=== PATIENT | male | born 1965 | race Caucasian/White ===

== ENCOUNTER 2020-12-13 17:26 | Outpatient (REF) | payer BC, SELFPAY ==
[2020-12-13 17:59] LABS: MANUAL DIFF FLAG NO
[2020-12-13 18:06] LABS: Basophils Percent Auto 0.3 % (0-2); Eosinophils Absolute Auto 0.1 X10*3/uL (0.0-0.4); Eosinophils Percent Auto 0.7 % (0-4); Hematocrit 45.6 % (42-52); Imm Gran Abs Auto 0.02 X10*3/uL (0.00-0.03); Imm Gran Pct Auto 0.3 % (0.0-0.4); Lymphocytes Absolute Auto 2.1 X10*3/uL (1.2-4.9); Lymphocytes Percent Auto 30.3 % (20-40); Mean Corpuscular HGB Conc 32.9 g/dl (31.0-36.0); Mean Corpuscular Hemoglobin 28.2 pg (27.0-33.0); Mean Corpuscular Volume 85.7 fL (80-98); Mean Platelet Volume 9.5 fL (9.4-12.4); Monocytes Absolute Auto 0.5 X10*3/uL (0.1-1.2); Monocytes Percent Auto 7.6 % (2-11); Neutrophils Absolute Auto 4.2 X10*3/uL (2.0-8.3); Neutrophils Percent Auto 60.8 % (45-73); Platelet Count 272 X10*3/uL (160-400); Red Blood Count 5.32 X10*6/uL (4.60-5.80); Red Cell Distribution Width 12.5 % (11.0-16.0)
[2020-12-13 18:10] LABS: Glucose Urine UA NEG (NEG); Leukocyte Esterase Urine NEG (NEG); Nitrite Urine NEG (NEG); Specific Gravity - Urine 1.025 (1.005-1.025); Urine Blood NEG (NEG); Urine Ketones NEG (NEG); Urine Protein NEG (NEG-TRACE)
[2020-12-13 18:14] LABS: Appearance Urine CLEAR; Color Urine YELLOW
[2020-12-13 18:21] LABS: Alanine Aminotransferase 29 U/L (0-40); Albumin Level 4.3 g/dL (3.5-5.0); Alkaline Phosphatase 94 U/L (39-117); Anion Gap 14 (12-20); Aspartate Amino Transferase 23 U/L (5-37); Bilirubin Total 0.5 mg/dL (0.0-1.0); Blood Urea Nitrogen 11 mg/dL (9-16); Calcium 9.4 mg/dL (8.4-10.2); Carbon Dioxide 26 mmol/L (22-29); Chloride 103 mmol/L (96-108); Cholesterol 206 mg/dL; Estimated Glomerular Filt Rate > 60; Glucose Random 91 mg/dL (60-115); HDL Cholesterol 36 mg/dL; LDL Cholesterol Calculated 131 mg/dl; Potassium 4.1 mmol/L (3.3-5.1); Sodium 139 mmol/L (135-145); Total Protein 7.4 g/dL (6.5-8.0); Triglycerides 197 mg/dL
[2020-12-13 18:31] LABS: RBC Urine 0 /HPF (0)
[2020-12-13 18:32] LABS: Squamous Epithelial Cell Urine TRACE /LPF; WBC Urine 0-2 /HPF (0-4)
[2020-12-13 18:44] LABS: Free T4 (Free Thyroxine) 0.89 ng/dL (0.71-1.85); Prostate Specific Antigen Scr 0.89 ng/mL (<0.05-4.0); Thyroid Stimulating Hormone 1.11 uIU/mL (0.32-4.0)
[2020-12-13 19:28] LABS: Folate > 20.0 ng/mL (> or = 4.0); Vitamin B12 781 pg/mL (200-900)
== END 2020-12-13 17:27 | disposition home or self-care (01) ==
LOC: HO.LAB 17:26
PROVIDERS: PCP Internal Medicine; Visit Provider Internal Medicine
DX: Z00.00 Encounter for general adult medical examination without abnormal findings (principal)
CPT/HCPCS: 36415; 80053; 80061; 81001; 82607; 82746; 84153; 84439; 84443; 85025

== ENCOUNTER 2022-02-21 11:20 | Outpatient (REF) | payer BC, SELFPAY ==
[2022-02-21 11:48] LABS: MANUAL DIFF FLAG NO
[2022-02-21 12:01] LABS: Basophils Percent Auto 0.5 % (0-2); Eosinophils Absolute Auto 0.1 X10*3/uL (0.0-0.4); Eosinophils Percent Auto 1.8 % (0-4); Hematocrit 43.7 % (42.0-52.0); Hemoglobin 14.3 g/dl (14.0-18.0); Imm Gran Abs Auto 0.01 X10*3/uL (0.00-0.03); Imm Gran Pct Auto 0.2 % (0.0-0.4); Lymphocytes Absolute Auto 1.7 X10*3/uL (1.2-4.9); Lymphocytes Percent Auto 27.1 % (20-40); Mean Corpuscular HGB Conc 32.7 g/dl (31.0-36.0); Mean Corpuscular Hemoglobin 28.3 pg (27.0-33.0); Mean Corpuscular Volume 86.4 fL (80.0-98.0); Mean Platelet Volume 9.6 fL (9.4-12.4); Monocytes Absolute Auto 0.6 X10*3/uL (0.1-1.2); Monocytes Percent Auto 10.2 % (2-11); Neutrophils Absolute Auto 3.7 x10*3/uL (2.0-8.3); Neutrophils Percent Auto 60.2 % (45-73); Platelet Count 248 X10*3/uL (160-400); Red Blood Count 5.06 X10*6/uL (4.60-5.80); Red Cell Distribution Width 12.8 % (11.0-16.0); White Blood Count 6.2 X10*3/uL (4.8-10.8)
[2022-02-21 12:12] LABS: Appearance Urine CLEAR; Color Urine YELLOW; Glucose Urine UA NEG (NEG); Leukocyte Esterase Urine NEG (NEG); Nitrite Urine NEG (NEG); PH 6.5 (5.0-8.0); Specific Gravity - Urine 1.015 (1.005-1.025); Urine Blood NEG (NEG); Urine Ketones NEG (NEG); Urine Protein TRACE MG/DL (NEG-TRACE)
[2022-02-21 12:29] LABS: Mucus Urine 1+ /LPF; RBC Urine 0-2 /HPF (0); Squamous Epithelial Cell Urine 1+ /LPF; WBC Urine 0-2 /HPF (0-4)
[2022-02-21 12:42] LABS: Alanine Aminotransferase 26 U/L (0-40); Albumin Level 4.2 g/dL (3.5-5.0); Alkaline Phosphatase 82 U/L (39-117); Anion Gap 12 (12-20); Aspartate Amino Transferase 21 U/L (5-37); Bilirubin Total 0.9 mg/dL (0.0-1.0); Blood Urea Nitrogen 16 mg/dL (9-16); C Reactive Protein 0.42 mg/dL (< or = 0.50); Calcium 9.4 mg/dL (8.4-10.2); Carbon Dioxide 27 mmol/L (22-29); Chloride 106 mmol/L (96-108); Cholesterol 230 mg/dL; Estimated Glomerular Filt Rate > 60; Glucose Random 92 mg/dL (60-115); HDL Cholesterol 38 mg/dL; LDL Cholesterol Calculated 162 mg/dl; Potassium 4.6 mmol/L (3.3-5.1); Sodium 140 mmol/L (135-145); Total Protein 7.2 g/dL (6.5-8.0); Triglycerides 151 mg/dL
[2022-02-21 12:49] LABS: Erythrocyte Sedimentation Rate 4 MM/HR (0-15)
[2022-02-21 12:58] LABS: Free T4 (Free Thyroxine) 0.92 ng/dL (0.71-1.85); Prostate Specific Antigen Scr 0.89 ng/mL (<0.05-4.0); Thyroid Stimulating Hormone 1.13 uIU/mL (0.32-4.0)
[2022-02-21 13:18] LABS: Folate 17.9 ng/mL (> or = 4.0); Vitamin B12 615 pg/mL (200-900)
== END 2022-02-21 11:21 | disposition home or self-care (01) ==
LOC: HO.LAB 11:20
PROVIDERS: PCP Internal Medicine; Visit Provider Internal Medicine
DX: K21.9 Gastro-esophageal reflux disease without esophagitis (principal); E78.00 Pure hypercholesterolemia, unspecified; Z12.5 Encounter for screening for malignant neoplasm of prostate
CPT/HCPCS: 36415; 80053; 80061; 81001; 82607; 82746; 84153; 84439; 84443; 85025; 85652; 86140

== ENCOUNTER 2023-02-27 13:09 | Outpatient (REF) | payer BC, SELFPAY ==
[2023-02-27 13:20] LABS: MANUAL DIFF FLAG NO
[2023-02-27 14:52] LABS: Basophils Percent Auto 0.6 % (0-2); Eosinophils Absolute Auto 0.1 X10*3/uL (0.0-0.4); Eosinophils Percent Auto 0.9 % (0-4); Hematocrit 44.2 % (42.0-52.0); Hemoglobin 14.6 g/dl (14.0-18.0); Imm Gran Abs Auto 0.01 X10*3/uL (0.00-0.03); Imm Gran Pct Auto 0.2 % (0.0-0.4); Lymphocytes Absolute Auto 1.6 X10*3/uL (1.2-4.9); Lymphocytes Percent Auto 24.2 % (20-40); Mean Corpuscular Hemoglobin 28.8 pg (27.0-33.0); Mean Corpuscular Volume 87.2 fL (80.0-98.0); Mean Platelet Volume 9.9 fL (9.4-12.4); Monocytes Absolute Auto 0.6 X10*3/uL (0.1-1.2); Monocytes Percent Auto 8.3 % (2-11); Neutrophils Absolute Auto 4.4 x10*3/uL (2.0-8.3); Neutrophils Percent Auto 65.8 % (45-73); Platelet Count 276 X10*3/uL (160-400); Red Blood Count 5.07 X10*6/uL (4.60-5.80); Red Cell Distribution Width 12.5 % (11.0-16.0); White Blood Count 6.6 X10*3/uL (4.8-10.8)
[2023-02-27 15:36] LABS: Alanine Aminotransferase 19 U/L (0-40); Alkaline Phosphatase 84 U/L (39-117); Anion Gap 9 (12-20); Aspartate Amino Transferase 19 U/L (5-37); Bilirubin Total 0.4 mg/dL (0.0-1.0); Blood Urea Nitrogen 15 mg/dL (9-16); Calcium 9.1 mg/dL (8.4-10.2); Carbon Dioxide 29 mmol/L (22-29); Chloride 107 mmol/L (96-108); Cholesterol 214 mg/dL; Estimated Glomerular Filt Rate > 60; Glucose Random 80 mg/dL (60-115); HDL Cholesterol 34 mg/dL; LDL Cholesterol Calculated 127 mg/dl; Potassium 3.9 mmol/L (3.3-5.1); Sodium 141 mmol/L (135-145); Total Protein 7.1 g/dL (6.5-8.0); Triglycerides 268 mg/dL
[2023-02-27 15:54] LABS: Free T4 (Free Thyroxine) 0.91 ng/dL (0.71-1.85); Prostate Specific Antigen Scr 0.86 ng/mL (<0.05-4.0); Thyroid Stimulating Hormone 1.61 uIU/mL (0.32-4.0)
[2023-02-27 16:04] LABS: Folate 13.1 ng/mL (> or = 4.0); Vitamin B12 570 pg/mL (200-900)
== END 2023-02-27 13:10 | disposition home or self-care (01) ==
LOC: HO.LAB 13:09
PROVIDERS: PCP Internal Medicine; Visit Provider Internal Medicine
DX: E78.00 Pure hypercholesterolemia, unspecified (principal); R35.0 Frequency of micturition; Z12.5 Encounter for screening for malignant neoplasm of prostate
CPT/HCPCS: 36415; 80053; 80061; 82607; 82746; 84153; 84439; 84443; 85025

== ENCOUNTER 2023-04-09 12:52 | Outpatient (REF) | payer BC, SELFPAY ==
--- NOTE | ~2023-04-09 | US_ITS ---
EXAMINATION: US PELVIS LIMITED (BLADDER) CLINICAL INFORMATION: Frequency of micturition. COMPARISON: Ultrasound abdomen complete 01/29/2017. TECHNIQUE: Real-time imaging of the bladder. FINDINGS: BLADDER: Diffuse wall thickening. Bilateral ureteral jets are demonstrated. Prevoid bladder volume is 243 mL. Postvoid bladder volume is 29.9 mL. The prostate volume is 54.4 mL. US/US bladder IMPRESSION: 1. Diffuse wall thickening of the urinary bladder, correlation with urinalysis as clinically indicated. 2. Enlarged prostate. 3. Post void bladder volume of 30 mL.
== END 2023-04-09 12:53 | disposition home or self-care (01) ==
LOC: HO.US 12:52
PROVIDERS: PCP Internal Medicine; Visit Provider Internal Medicine
DX: R35.0 Frequency of micturition (principal)
CPT/HCPCS: 76857

== ENCOUNTER 2024-02-06 13:31 | Outpatient (AMB) | payer BC, SELFPAY ==
[2024-02-06 13:34] VITALS: BP 112/82; PULSE 75; O2SAT 98; BMI 23.2
--- NOTE | 2024-02-06 13:34 | A.OFFPC_ITS ---
Vital Signs 02/06/24 13:34 Height 5 ft 10 in Weight 162 lb BMI 23.2 BP 112/82 Blood Pressure Location Lt brachial Position Sitting Pulse 75 Pulse Source Pulse Oximeter Pulse Oximetry (%) 98 Oxygen Delivery Method Room Air Intake Visit Reasons: PE Intake Note: Patient is here today for a physical. Egg Sorter Required: No Allergies shrimp [SHRIMP] Allergy (Intermediate, Verified 02/06/24 13:34) SWELLING shellfish derived Allergy (Unknown, Verified 02/06/24 13:34) Swelling Medication List - Last Reconciled 02/06/24 by Ming Martin MD finasteride 1 mg PO DAILY minoxidil 2% 1 mL topical BID Tobacco use date assessed: 02/06/24 Dental Screening Dental Screen Date: 02/06/24 Did you have a dental visit in the last 12 months?: No Did you have a dental problem in the last 6 months where you did not have access to dental care?: No Was dental information given to patient?: Patient has dentist HPI PE HPI Details 58-year-old male with hypercholesterolem ia GERD generalized anxiety disorder last seen in February 2023. Patient is here for physical exam: Test up-to-date February 2022 patient had some frequency an ultrasound done showing pros keller volume to be 54 cc post void is 30 cc. Did received notes from surgical procedure 03/12/2023 patient had laparoscopic fundoplication under Dr. Bates for hiatal hernia. occ dizzines . LL back = pain deny fall 3 weeks states not sleeping well erectile dysfuctions PFSH Medical History (Updated 02/06/24 @ 14:08 by Ming Martin MD) Frequency of micturition Genital herpes in men Hypercholesterolemia Fatty liver GERD (gastroesophageal reflux disease) Irritable bowel syndrome Vitamin D deficiency Lupus anticoagulant positive Migraine Surgical History (Updated 02/06/24 @ 13:53 by Ming Martin MD) History of fundoplication No pertinent past surgical history Family History (Updated 02/06/24 @ 13:54 by Ming Martin MD) Father Myocardial infarct Brother Myocardial infarct Pancreatic cancer Maternal Uncle Myocardial infarct Paternal Aunt Myocardial infarct Maternal Uncle Barretts esophagus Maternal Grandmother Brain cancer Social History (Updated 02/06/24 @ 13:55 by Ming Martin MD) Housing: Apartment Alcohol intake: current Alcohol intake frequency: holidays/special occasions only Alcohol type: hard liquor Comment: 2 x a week 4 shots one time Patient Tobacco Use Status: Never used Tobacco Years Smoked: tinture CBD e-Cigarette/Vaping Use: Never Used Second Hand Smoke Exposure: No service: No Current occupational status: disabled Cognitive needs: No Hearing needs: No Vision needs: Yes Questionnaire PHQ-9 Over the last 2 weeks, how often have you been bothered by any of the following problems? 1. Little interest or pleasure in doing things: not at all 2. Feeling down, depressed, or hopeless: not at all 3. Trouble falling or staying asleep, or sleeping too much: not at all 4. Feeling tired or having little energy: not at all 5. Poor appetite or overeating: not at all 6. Feeling bad about yourself - or that you are a failure or have let yourself or your family down: not at all 7. Trouble concentrating on things, such as reading the newspaper or watching television: not at all 8. Moving or speaking so slowly that other people could have noticed. Or the opposite - being so fidgety or restless that you have been moving around a lot more than usual: not at all 9. Thoughts that you would be better off or of hurting yourself in some way: not at all Total score: 0 Depression Screening Interpretation: Negative Depression Screening Done: Yes 60728 - PHQ-9 Billing: Yes Source: Developed by Drs. Artemio Jarrett, Gini Gutierrez, Bang Vazquez and colleagues, with an educational vinay from [employer]. Thrive Questionnaire Date Thrive assessed: 02/06/24 I am a: Patient What is your living situation today?: I have a steady place to live Within the past 12 months, did the food you bought not last and you didn't have the money to get more?: Never true Within the past 12 months, did you worry whether your food would run out before you got money to buy more?: Never true Do you have trouble paying for medicines?: No Do you have trouble getting transportation to medical appointments?: No Do you have trouble paying your heating and electricity bill?: No Do you have trouble taking care of your child, family member or friend?: No Do you have trouble with day-to-day activities such as bathing, preparing meals, shopping, managing finances, etc.?: No Are you currently unemployed and looking for a job?: No Are you interested in more education?: No Please select the resources that you would like help with: None Currently or been in a relationship where the following occur: no concerns reported THRIVE Score: 0 AUDIT C Alcohol Use Questionnaire (AUDIT-C) 1. How often do you have a drink containing alcohol?: Monthly or less 2. How many drinks containing alcohol do you have on a typical day when you are drinking?: 1 or 2 3. How often do you have six or more drinks on one occasion?: Never Total Score: 1 PERFECTO-7 AMB Questionnaire PERFECTO-7 Date PERFECTO - 7 assessed: 02/06/24 Feeling nervous, anxious, or on edge: 0 = Not at all Not being able to stop or control worryin = Not at all Worrying too much about different things: 0 = Not at all Trouble relaxin = Not at all Being so restless that it is hard to sit still: 0 = Not at all Becoming easily annoyed or irritable: 0 = Not at all Feeling afraid as if something awful might happen: 0 = Not at all Total PERFECTO-7 score (0-4 normal; 5-9 mild; 10-14 moderate; 15-21 severe): 0 Source: Developed by Drs. Artemio Jarrett, Gini Gutierrez, Bang Vazquez and colleagues, with an educational vinay from [employer]. PERFECTO-7 Assessment Billing PERFECTO-7 Assessment Tool: PERFECTO-7 Assessment 49069 Review of Systems Const Denies poor appetite and Denies weakness Eyes Denies no additional complaints ENT Reports Normal hearing present, Denies dizziness, Denies nasal congestion, Denies tinnitus and Denies sore throat Card Denies chest pain, Denies syncope, Denies rapid heart rate and Denies dyspnea Resp Denies cough and Denies dyspnea GI Denies change in stool character, Reports constipation, Denies diarrhea, Denies nausea and Denies vomiting Denies dysuria and Denies urinary frequency Neuro Reports Normal hearing present, Denies confusion, Denies dizziness, Denies syncope and Denies weakness Psych Denies confusion Physical exam (Primary Care) Vital Signs: Last Vital Signs Pulse 75 02/06/24 13:34 BP 112/82 02/06/24 13:34 Pulse Ox 98 02/06/24 13:34 Oxygen Delivery Method Room Air 02/06/24 13:34 BMI result Body Mass Index 23.2 Tobacco/Smoking Status: Tobacco use Status Tobacco use date assessed 02/06/24 02/06/24 13:35 Patient Tobacco Use Status Never used Tobacco 02/06/24 13:35 Tobacco use type 02/27/23 13:02 e-Cigarette/Vaping Use Never Used 02/06/24 13:35 PHQ-9: PHQ-9 Score PHQ-9: Total score 0 02/06/24 13:35 Depression Screening Interpretation: Negative Thrive Assessment: Date of Thrive Assessment Date Thrive assessed 02/06/24 02/06/24 13:35 Currently or been in a relationship where the following occur: no concerns reported Const General: No confusion Orientation/consciousness: No confusion HENMT Head: Yes normocephalic Ears: external ears normal and TM's normal bilaterally Face and sinus: Yes normal facial exam Mouth: moist mucous membranes Throat: Yes tonsils normal Eyes Conjunctivae: conjunctivae normal Pupils: Equal, round and reactive pupils present and Pupil accommodation reflex normal Direct Ophthalmoscopy: normal light reflex Neck Neck: No lymphadenopathy Thyroid: Thyroid normal Chest Chest palpation & inspection: normal inspection of the chest Resp Effort & Inspection: normal respiratory effort and no audible wheezes Auscultation: clear to auscultation bilaterally, no crackles, no wheezes and lung sounds not diminished Cardio Rate: regular rate Rhythm: regular rhythm Peripheral pulses: radial pulses present and dorsalis pedis present GI Other: Guaiac negative stools prostate enlarged Palpation (GI): no masses Auscultation: normal bowel sounds and normoactive bowel sounds Male General Exam: Yes normal external exam Skin General skin exam: no rashes or lesions noted Rashes: no rashes Neuro General: No confusion Cranial nerves: Yes Equal, round and reactive pupils present and Yes Normal hea ring present Cognition (Neuro): normal cognition Gait exam (Neuro): Normal gait present Motor exam (neuro): 5/5 motor strength present throughout Deep tendon reflexes (DTR's): Right brachioradialis reflex intensity grade: 2+, Left brachioradialis reflex intensity grade: 2+, Right patellar reflex intensity grade: 2+ and Left patellar reflex intensity grade: 2+ Extrem General: No edema Assessment and Plan Assessment & Plan (1) Annual physical exam: Code(s): Z00.00 - Encounter for general adult medical examination without abnormal findings (2) Hypercholesterolemia: Code(s): E78.00 - Pure hypercholesterolemia, unspecified Plan: Avoid fried foods, chicken skin, eggs, butter margarine, pastries and meat. Be it pork or beef they have a lot of cholesterol LDL goal of less than 130 and triglyceride of less than 150. (3) GERD (gastroesophageal reflux disease): Comment: Status post fundoplication February 2023 Code(s): K21.9 - Gastro-esophageal reflux disease without esophagitis Plan: Status post fundoplication February 2023, reflux plan (4) BPH (benign prostatic hyperplasia): Code(s): N40.0 - Benign prostatic hyperplasia without lower urinary tract symptoms Plan: Finasteride prescribed and is working good. (5) Testicular pain, right: Code(s): N50.811 - Right testicular pain Plan: Ultrasound of the scrotum requested (6) Erectile dysfunction: Code(s): N52.9 - Male erectile dysfunction, unspecified Plan: Sildenafil prescription sent in Orders: Orders Complete Blood Count Auto Diff Today E78.00 - Pure hypercholesterolemia, unspecified Free T4 (Free Thyroxine) Today E78.00 - Pure hypercholesterolemia, unspecified Thyroid Stimulating Hormone Today E78.00 - Pure hypercholesterolemia, unspecified Prostate Specific Antigen Scr Today E78.00 - Pure hypercholesterolemia, unspec ified US scrotum Today N50.811 - Right testicular pain UA CC w/rflx Micro + Cult Today N52.9 - Male erectile dysfunction, unspecified, R30.0 - Dysuria Comprehensive Met. Panel Today E78.00 - Pure hypercholesterolemia, unspecified Lipid Panel Today E78.00 - Pure hypercholesterolemia, unspecified Vitamin B12 and Folate Today E78.00 - Pure hypercholesterolemia, unspecified Medications: New sildenafil administer 30 minutes to 4 hours before activity 50 mg PO DAILY PRN 14 tabs 3RF sexual activity N52.9 - Male erectile dysfunction, unspecified Refilled finasteride 1 mg PO DAILY 90 tabs 3RF N40.0 - Benign prostatic hyperplasia without lower urinary tract symptoms Coding Level of Care Code Est Pt Prev Care 40-64y(77704) Diagnoses Annual physical exam Z00.00 Hypercholesterolemia E78.00 GERD (gastroesophageal reflux disease) K21.9 BPH (benign prostatic hyperplasia) N40.0 Testicular pain, right N50.811 Erectile dysfunction N52.9 Additional Codes PERFECTO-7 Assessment Billing - PERFECTO-7 Assessment Tool: PERFECTO-7 Assessment 60191 ([id number])
== END 2024-02-06 15:08 | disposition home or self-care (01) ==
PROVIDERS: PCP Internal Medicine; Visit Provider Internal Medicine
DX: Z00.00 Encounter for general adult medical examination without abnormal findings (principal); E78.00 Pure hypercholesterolemia, unspecified; K21.9 Gastro-esophageal reflux disease without esophagitis; N40.0 Benign prostatic hyperplasia without lower urinary tract symptoms; N50.811 Right testicular pain; N52.9 Male erectile dysfunction, unspecified
CPT/HCPCS: 99396

== ENCOUNTER 2024-02-06 14:19 | Outpatient (REF) | payer BC, SELFPAY ==
[2024-02-06 14:29] LABS: MANUAL DIFF FLAG NO
[2024-02-06 14:49] LABS: Appearance Urine Clear; Color Urine Yellow; Glucose Urine UA Negative (Negative); Leukocyte Esterase Urine Small (1+) (Negative); Nitrite Urine Negative (Negative); Specific Gravity - Urine 1.025 (1.005-1.025); UMIC TRIGGER UACC YES; Urine Blood Negative (Negative); Urine Ketones Trace mg/dL (Negative); Urine Protein Negative (Neg-Trace)
[2024-02-06 14:54] LABS: Bacteria Urine None Seen (None Seen); Hyaline Casts Urine 0-2 /LPF (0-2); RBC Urine 0-2 /HPF (0-2); Squamous Epithelial Cell Urine 0-2 /HPF (0-2); UACC Culture Trigger YES
[2024-02-06 14:54] LABS: Basophils Percent Auto 0.6 % (0-2); Eosinophils Absolute Auto 0.1 X10*3/uL (0.0-0.4); Eosinophils Percent Auto 2.1 % (0-4); Hematocrit 44.9 % (42.0-52.0); Imm Gran Abs Auto 0.01 X10*3/uL (0.00-0.03); Imm Gran Pct Auto 0.2 % (0.0-0.4); Lymphocytes Absolute Auto 1.8 X10*3/uL (1.2-4.9); Lymphocytes Percent Auto 27.7 % (20-40); Mean Corpuscular HGB Conc 33.4 g/dl (31.0-36.0); Mean Corpuscular Hemoglobin 29.2 pg (27.0-33.0); Mean Corpuscular Volume 87.5 fL (80.0-98.0); Mean Platelet Volume 9.6 fL (9.4-12.4); Monocytes Absolute Auto 0.6 X10*3/uL (0.1-1.2); Neutrophils Absolute Auto 3.8 x10*3/uL (2.0-8.3); Neutrophils Percent Auto 60.4 % (45-73); Platelet Count 266 X10*3/uL (160-400); Red Blood Count 5.13 X10*6/uL (4.60-5.80); Red Cell Distribution Width 12.4 % (11.0-16.0); White Blood Count 6.3 X10*3/uL (4.8-10.8)
[2024-02-06 15:46] LABS: Alanine Aminotransferase 21 U/L (0-40); Albumin Level 4.2 g/dL (3.5-5.0); Alkaline Phosphatase 85 U/L (39-117); Anion Gap 10 (12-20); Aspartate Amino Transferase 18 U/L (5-37); Bilirubin Total 0.6 mg/dL (0.0-1.0); Blood Urea Nitrogen 13 mg/dL (9-16); Calcium 9.5 mg/dL (8.4-10.2); Carbon Dioxide 27 mmol/L (22-29); Chloride 107 mmol/L (96-108); Cholesterol 221 mg/dL (<200); Estimated Glomerular Filt Rate > 60; Glucose Random 92 mg/dL (60-115); HDL Cholesterol 39 mg/dL (>40); LDL Cholesterol Calculated 143 mg/dL (<100); Potassium 4.2 mmol/L (3.3-5.1); Sodium 140 mmol/L (135-145); Total Protein 7.4 g/dL (6.5-8.0); Triglycerides 197 mg/dL (<150)
[2024-02-06 16:03] LABS: Free T4 (Free Thyroxine) 0.83 ng/dL (0.71-1.85); Thyroid Stimulating Hormone 0.71 uIU/mL (0.32-4.0)
[2024-02-06 16:09] LABS: Folate 12.5 ng/mL (> or = 4.0); Prostate Specific Antigen Scr 1.57 ng/mL (<0.05-4.0); Vitamin B12 650 pg/mL (200-900)
== END 2024-02-06 14:20 | disposition home or self-care (01) ==
LOC: HO.LAB 14:19
PROVIDERS: PCP Internal Medicine; Visit Provider Internal Medicine
DX: E78.00 Pure hypercholesterolemia, unspecified (principal); Z12.5 Encounter for screening for malignant neoplasm of prostate; R82.90 Unspecified abnormal findings in urine
CPT/HCPCS: 36415; 80053; 80061; 81001; 82607; 82746; 84153; 84439; 84443; 85025; 87086

== ENCOUNTER 2024-02-13 15:51 | Outpatient (REF) | payer BC, SELFPAY ==
--- NOTE | ~2024-02-13 | US_ITS ---
EXAMINATION: US SCROTUM CLINICAL INFORMATION: Right testicular pain. COMPARISON: None available. TECHNIQUE: A sonogram of the scrotum was performed assessing mina-scale appearance and color Doppler flow. Spectral Doppler analysis of the arterial and venous flow were performed in the testes bilaterally. FINDINGS: RIGHT: Right testicle measures 4.4 x 1.9 x 2.5 cm, volume 10.9 mL. Parenchymal echotexture is homogeneous. No focal testicular parenchymal lesions are visualized. Spectral Doppler analysis of the arterial and venous flow is normal in the right testis. Right epididymal head is normal in size. No right hydrocele or varicocele is seen. LEFT: Left testicle measures 4.3 x 2.2 x 3.0 cm, volume 14.8 mL. Parenchymal echotexture is homogeneous. No focal testicular parenchymal lesions are visualized. Spectral Doppler analysis of the arterial and venous flow is normal in the left testis. Left epididymal head is normal in size. No left hydrocele or varicocele is seen. US/US scrotum IMPRESSION: Normal exam.
== END 2024-02-13 15:52 | disposition home or self-care (01) ==
LOC: HO.US 15:51
PROVIDERS: PCP Internal Medicine; Visit Provider Internal Medicine
DX: N50.811 Right testicular pain (principal)
CPT/HCPCS: 76870

== ENCOUNTER → 2024-04-10 18:10 | Outpatient (BNV) | payer BC, SELFPAY ==
--- NOTE | 2024-04-10 18:11 | A.OFFPC_ITS ---
Intake Visit Reasons: Amb Documentation Allergies shrimp [SHRIMP] Allergy (Intermediate, Verified 02/06/24 13:34) SWELLING shellfish derived Allergy (Unknown, Verified 02/06/24 13:34) Swelling Tobacco use date assessed: 02/06/24 Dental Screening Dental Screen Date: 02/06/24 HPI Amb Documentation HPI Details 58-year-old male with a history of hyper cholesterolemia generalized anxiety disorder GERD BPH calling in through Telehealth regarding dysuria. this has been 3 days amnd does have a schedule with urology but now with chills, no penile dicharge. asking for antibiotic. [facility] Medical History (Updated 04/10/24 @ 18:12 by Ming Martin MD) Frequency of micturition Genital herpes in men Hypercholesterolemia Fatty liver GERD (gastroesophageal reflux disease) Irritable bowel syndrome Vitamin D deficiency Lupus anticoagulant positive Migraine Surgical History (Updated 02/06/24 @ 13:53 by Ming Martin MD) History of fundoplication No pertinent past surgical history Family History (Updated 02/06/24 @ 13:54 by Ming Martin MD) Father Myocardial infarct Brother Myocardial infarct Pancreatic cancer Maternal Uncle Myocardial infarct Paternal Aunt Myocardial infarct Maternal Uncle Barretts esophagus Maternal Grandmother Brain cancer Social History (Updated 02/06/24 @ 13:55 by Ming Martin MD) Housing: Apartment Alcohol intake: current Alcohol intake frequency: holidays/special occasions only Alcohol type: hard liquor Comment: 2 x a week 4 shots one time Patient Tobacco Use Status: Never used Tobacco Years Smoked: tinture CBD e-Cigarette/Vaping Use: Never Used Second Hand Smoke Exposure: No service: No Current occupational status: disabled Cognitive needs: No Hearing needs: No Vision needs: Yes Questionnaire Thrive Questionnaire Date Thrive assessed: 02/06/24 PERFECTO-7 AMB Questionnaire PERFECTO-7 Date PERFECTO - 7 assessed: 02/06/24 Source: Developed by Drs. Artemio Jarrett, Gini Gutierrez, Bang Vazquez and colleagues, with an educational vinay from [employer]. Physical exam (Primary Care) Tobacco/Smoking Status: Tobacco use Status Tobacco use date assessed 02/06/24 02/06/24 13:35 Patient Tobacco Use Status Never used Tobacco 02/06/24 13:55 Tobacco use type 02/27/23 13:02 e-Cigarette/Vaping Use Never Used 02/06/24 13:55 Thrive Assessment: Date of Thrive Assessment Date Thrive assessed 02/06/24 02/06/24 13:35 Telehealth Telehealth Telehealth Platform: Telephone Location of provider rendering services: practice address Location of patient: address on file Patient Identification confirmed using: Name, : Yes Telehealth method: voice only Patient verbally consented to treatment: Yes Patient verbally consented to billing insurance company: Yes Patient informed of any privacy concerns related to visit: Yes Minutes spent on Phone/Video with Pt.: 15 Assessment and Plan Assessment & Plan (1) Dysuria: Code(s): R30.0 - Dysuria Plan: Discussed with the patient that I have sent in the script advised to increase oral fluids. Medications: Refilled ciprofloxacin HCl (Cipro) 500 mg PO BID 14 tabs 0RF N40.0 - Benign prostatic hyperplasia without lower urinary tract symptoms Coding Level of Care Code Tele Est Pt Level 3 (35829) Diagnoses Dysuria R30.0
== END ==
PROVIDERS: PCP Internal Medicine; Visit Provider Internal Medicine
DX: R30.0 Dysuria (principal)
CPT/HCPCS: 99442

== ENCOUNTER 2024-04-15 14:54 | Outpatient (AMB) | payer BC, SELFPAY ==
--- NOTE | 2024-04-15 14:57 | MHC.OFFVIS ---
Intake Visit Reasons: BPH/erectile dysfunction Intake Note: New Patient presents for initial visit for BPH and Erectile Dysfunction Urology Medications: finasteride, sildenafil Blood Thinner: none PVR: 13ml's Speech Language Pathology Assistant Required: No Allergies shrimp [SHRIMP] Allergy (Intermediate, Verified 04/15/24 15:47) SWELLING shellfish derived Allergy (Unknown, Verified 04/15/24 15:47) Swelling Medication List - Last Reconciled 04/15/24 by CLIFF Wakefield ciprofloxacin HCl (Cipro) 500 mg PO BID finasteride 1 mg PO DAILY minoxidil 2% 1 mL topical BID sildenafil 50 mg PO DAILY PRN HPI Comments Details: Tex is a 58-year-old male patient of he has a past medical history of genital herpes, hypercholesteremia, fatty liver, GERD, irritable bowel syndrome, vitamin-D deficiency, and migraines. He presents to the office today as a new patient for ongoing lower urinary tract symptoms. In discussion with the patient today he reports following up with his PCP for ongoing lower urinary tract symptoms he has been experiencing at which time he was started on 1 mg of finasteride and treated with antibiotics (ciprofloxacin) for urinary tract infection. However in review of patient's chart it appears previous urinalysis's and urine culture noted no growth. He reports noting episodes of gross hematuria, dysuria, urinary urgency, urinary frequency, and feeling of incomplete bladder emptying. He reports he is currently on antibiotic therapy and is due to be done on Tuesday 04/17. He also reports having had bladder ultrasound. These results were reviewed with the patient today. Diffuse bladder wall thickening. Bladder jets are demonstrated. Pre void bladder volume is approximately 250 mL. Postvoid bladder volume is approximately 30 mL. The prostate measures approximately 55 mL. In review of patient's chart it appears PSAs are as follows: 12/04 0.9, 03/07 0.9, 03/08 0.9, 02/06 1.6 Discussed at length potential causes of lower urinary tract symptoms patient is experiencing. Discussed further workup to include CT urogram and urine culture once antibiotic therapy is completed. Causing discussed possible near future in office cystoscopy and or micorgen for further assessment evaluation. He otherwise denies changes to urinary stream, flank pain, fever, and or chills. In office urinalysis results reviewed with the patient today. Discussed pH 5.5 and drinking adequate amount of water daily. PVR 13 mLs. PFSH Medical History Frequency of micturition Genital herpes in men Hypercholesterolemia Fatty liver GERD (gastroesophageal reflux disease) Irritable bowel syndrome Vitamin D deficiency Lupus anticoagulant positive Migraine Surgical History History of fundoplication No pertinent past surgical history Family History Father Myocardial infarct Brother Myocardial infarct Pancreatic cancer Maternal Uncle Myocardial infarct Paternal Aunt Myocardial infarct Maternal Uncle Barretts esophagus Maternal Grandmother Brain cancer Social History Housing: Apartment Alcohol intake: current Alcohol intake frequency: holidays/special occasions only Alcohol type: hard liquor Comment: 2 x a week 4 shots one time Patient Tobacco Use Status: Never used Tobacco Years Smoked: tinture CBD e-Cigarette/Vaping Use: Never Used Second Hand Smoke Exposure: No service: No Current occupational status: disabled Cognitive needs: No Hearing needs: No Vision needs: Yes Review of Systems Const All systems reviewed & are unremarkable except as noted in HPI and below Physical Exam Const General: cooperative, healthy appearing, comfortable, no acute distress, well developed, alert and awake Orientation/consciousness: patient oriented x3 Limitations: no limitations HEENT Head: Yes normal to inspection, Yes normocephalic and Yes atraumatic Ears: hearing grossly normal bilaterally Eyes General: appearance normal, both eyes and all related structures Neck Neck: Yes normal visual inspection and Yes trachea midline Chest Chest palpation & inspection: normal inspection of the chest Resp Effort & Inspection: normal respiratory effort and able to speak in complete sentences Cardio Rate: regular rate GI Inspection: Yes normal to inspection General: Yes no CVA tenderness Back/Spine/Pelvis Back: no CVA tenderness Skin General skin exam: no rashes or lesions noted Neuro General: patient oriented x3 Extrem General: Yes normal to inspection Psych Appearance: grossly normal and well kempt Mental Status: mental status grossly normal Speech and movement: Normal speech and movement present and Clear speech present Affect: normal affect Attitude: cooperative Thought process: Normal thought process present Thought content: Normal thought content present Insight: Fair insight present (Psych) Judgement: Fair judgement present (Psych) Office Procedures Post Void Residual Post Residual Void Post Void Residual (PVR): 13 [id number] Void Residual by ultrasound Results AMB Urinalysis, Automated UA Leukoctes 0 Chaz/uL Last Edit by [facility] on 04/15/24 15:17 UA Nitrite Last Edit by [employer] on 04/15/24 15:17 UA Urobilinogen 0.2 mg/dL Last Edit by [employer] on 04/15/24 15:17 UA Protein 15 mg/dL Last Edit by [employer] on 04/15/24 15:17 UA pH 5.5 Last Edit by [employer] on 04/15/24 15:17 UA Blood 0 Oliver/uL Last Edit by [employer] on 04/15/24 15:17 UA Specific [place] 1.030 Last Edit by [employer] on 04/15/24 15:17 UA Ketone Last Edit by [employer] on 04/15/24 15:17 UA Bilirubin 0 mg/dL Last Edit by [employer] on 04/15/24 15:17 UA Glucose 0 mg/dL Last Edit by [employer] on 04/15/24 15:17 Results Reviewed Results Reviewed: Laboratory Last Values Urine pH (Auto) 5.5 04/15/24 15:04 Specific [place] (Auto) 1.030 04/15/24 15:04 Urine Protein (Auto) 15 mg/dL 04/15/24 15:04 Glucose (UA)(Auto) 0 mg/dL 04/15/24 15:04 Urine Blood (Auto) 0 Oliver/uL 04/15/24 15:04 Urine Bilirubin (Auto) 0 mg/dL 04/15/24 15:04 Urine Urobilinogen (Auto) 0.2 mg/dL 04/15/24 15:04 Leukocyte Esterase (Auto) 0 Chaz/uL 04/15/24 15:04 Date of Service: 04/09/23 EXAMINATION: US PELVIS LIMITED (BLADDER) FINDINGS: BLADDER: Diffuse wall thickening. Bilateral ureteral jets are demonstrated. Prevoid bladder volume is 243 mL. Postvoid bladder volume is 29.9 mL. The prostate volume is 54.4 mL. IMPRESSION: 1. Diffuse wall thickening of the urinary bladder, correlation with urinalysis as clinically indicated. 2. Enlarged prostate. 3. Post void bladder volume of 30 mL. Assessment & Plan Assessment & Plan (1) Dysuria: Code(s): R30.0 - Dysuria Category: Medical (2) Lower urinary tract symptoms: Code(s): R39.9 - Unspecified symptoms and signs involving the genitourinary system Category: Medical (3) Frequency of micturition: Code(s): R35.0 - Frequency of micturition Category: Medical Plan In office urinalysis results reviewed with the patient today; as noted above. PVR 13 mL. Discussed at length potential causes for lower urinary tract symptoms patient is experiencing. Discussed and stressed the importance of completing antibiotic therapy as prescribed. Discussed obtaining urinalysis and culture 24 to 48 hours after completion of antibiotic therapy. Will obtain CT urogram for further assessment evaluation. BUN and creatinine ordered for imaging. Discussed possible near future in office cystoscopy for further assessment evaluation. Discussed, educated, and stressed the importance of adequate hydration in relation to lower urinary tract symptoms as well as overall health and well-being. Recent bladder ultrasound results reviewed with the patient today; as noted above. Recent PSA results reviewed with the patient today; as noted above. Follow-up in 1-3 months with imaging and labs to be completed prior; or sooner with any issues, concerns, and or questions. Orders: Orders AMB Post Void Residual by ultrasound Today N40.0 - Benign prostatic hyperplasia without lower urinary tract symptoms AMB Urinalysis Automated Today Z13.9 - Encounter for screening, unspecified CT urogram Today R31.0 - Gross hematuria Blood Urea Nitrogen Today R39.15 - Urgency of urination Creatinine Today R39.15 - Urgency of urination UA CC w/rflx Micro + Cult Today R39.9 - Unspecified symptoms and signs involving the genitourinary system Patient Instructions: The patient had an opportunity to ask questions regarding the treatment plan. All questions were answered. Physical exam, labs, and imaging were discussed and reviewed in detail. As well as risks, benefits, and discussion of treatment choices. No major barriers to understanding were identified. The patient expressed understanding and agreement with the above treatment plan. The patient was made aware they should contact our office by phone for worsening of their current condition, the appearance of new symptoms, or with any questions or concerns. Compliance is encouraged with any medications and follow up testing that is ordered. It is a privilege to be allowed the opportunity to participate in? your urological care.? Again, if you have any questions or concerns If you have any questions or concerns please do not hesitate to contact me. The office is [phone]. This note is constructed using voice recognition software. While every effort has been made to ensure accuracy personal development mentor errors may have been included. Yours sincerely, CLIFF Wakefield Coding Level of Care Code New Pt Level 3 (41980) Diagnoses Dysuria R30.0 Lower urinary tract symptoms R39.9 Frequency of micturition R35.0 CPT Codes Post Residual Void - PVR CPT Code: 74947-[id number] Void Residual by ultrasound ([id number])
== END 2024-04-15 15:51 | disposition home or self-care (01) ==
PROVIDERS: PCP Internal Medicine; Visit Provider Nurse Practitioner Family
DX: R30.0 Dysuria (principal); R39.9 Unspecified symptoms and signs involving the genitourinary system; R35.0 Frequency of micturition; Z13.9 Encounter for screening, unspecified
CPT/HCPCS: 99203

== ENCOUNTER → 2024-04-15 14:54 | Outpatient (BNVA) | payer BC, SELFPAY | PROVIDERS: PCP Internal Medicine; Visit Provider Nurse Practitioner Family | DX: R30.0 Dysuria (principal); R35.0 Frequency of micturition; R39.9 Unspecified symptoms and signs involving the genitourinary system | CPT/HCPCS: 51798; 81003 ==

== ENCOUNTER 2024-04-20 15:10 | Outpatient (REF) | payer BC, SELFPAY ==
[2024-04-20 15:43] LABS: Appearance Urine Clear; Color Urine Dark Yellow; Glucose Urine UA Negative (Negative); Leukocyte Esterase Urine Negative (Negative); Nitrite Urine Negative (Negative); PH 5.5 (5.0-9.0); Specific Gravity - Urine >= 1.030 (1.005-1.025); Urine Blood Negative (Negative); Urine Ketones Trace mg/dL (Negative); Urine Protein Trace mg/dL (Neg-Trace)
[2024-04-20 16:03] LABS: Blood Urea Nitrogen 15 mg/dL (9-16); Estimated Glomerular Filt Rate > 60
== END 2024-04-20 15:11 | disposition home or self-care (01) ==
LOC: HO.LAB 15:10
PROVIDERS: PCP Internal Medicine; Visit Provider Nurse Practitioner Family
DX: R39.15 Urgency of urination (principal); R39.9 Unspecified symptoms and signs involving the genitourinary system
CPT/HCPCS: 36415; 81003; 82565; 84520

== ENCOUNTER 2024-05-04 11:04 | Outpatient (REF) | payer BC, SELFPAY ==
--- NOTE | ~2024-05-04 | CT_ITS ---
EXAMINATION: CT ABDOMEN AND PELVIS WITHOUT AND WITH CONTRAST CLINICAL INFORMATION: Gross hematuria COMPARISON: Ultrasound examination of the urinary bladder on 04/09/2023. TECHNIQUE: Noncontrast CT of the abdomen and pelvis is performed followed by split bolus contrast-enhanced images using 85 mL Omnipaque 350 contrast. Postcontrast imaging is performed during the combined nephrogram and excretion phase. Sagittal and coronal reformatted images were obtained on the technologist's workstation for both the precontrast and postcontrast phases. This CT examination was performed using dose optimization techniques as appropriate, variously including the following: *Automated exposure control *Adjustment of mA and/or kV according to patient size (this includes techniques or standardized protocols for targeted exams where dose is matched to indication/reason for exam; i.e. extremities or head) *Use of iterative reconstruction technique DLP: 461 mGy-cm FINDINGS: LUNG BASES: Bilateral lung bases are clear. LIVER: No focal lesion is seen in the liver. GALLBLADDER AND BILIARY TREE: Gallbladder appears unremarkable without calcified stones. Common bile duct is not dilated. SPLEEN: The spleen is normal in size without focal lesion. PANCREAS: The pancreas appears unremarkable. ADRENAL GLANDS: Adrenal glands are normal in size without focal lesion bilaterally. KIDNEYS: Precontrast images show no calcified renal stones. Post contrast nephrographic phase images show normal uniform bilateral nephrograms. Excretory phase images show normal excretion of contrast into bilateral renal calyces, pelvises and ureters without filling defects. BOWELS: There is no abnormal dilatation of large and small bowel loops. RETROPERITONEUM: No abnormally enlarged retroperitoneal lymph nodes, mass or hematoma could be seen. BLOOD VESSELS: Abdominal aorta is normal in size and smoothly patent. ABDOMINAL WALL: Small umbilical hernia containing mesenteric fat is seen. A focal sagittal scar is seen in right anterior subcutaneous abdominal wall at L4 level. PERITONEUM: There was no ascites. There were no abdominal peritoneal inflammatory changes seen. No free peritoneal air was seen. No abnormally enlarged mesenteric lymph nodes are found. BONES: No fracture or dislocation. No focal bone lesion diagnostic of metastatic disease could be seen in the lumbar region. EXAMINATION: CT pelvis. FINDINGS: URINARY BLADDER AND URETERS: Precontrast images show no calcified urinary bladder stone or distal ureteric stones. Urinary bladder fills normally with contrast without filling defects. There is normal visualization of bilateral distal ureters which are normal in size. BOWELS: There is no abnormal dilatation of large and small bowel loops. Normal appendix is seen projecting medial to the cecum. GENITAL ORGANS: Seminal vesicles are unremarkable. Prostate gland is normal. LYMPH NODES: No abnormally enlarged iliac or inguinal lymph nodes are seen. PERITONEUM: No inflammatory changes, ascites or free peritoneal air are found in the pelvis. BONES: No fracture or dislocation. No focal bone lesion diagnostic of metastatic disease could be seen in the pelvis. CT/CT urogram IMPRESSION: 1. No evidence of renal stones, solid mass lesions or ureteric obstruction. 2. No urinary bladder stone, mass lesions or distal ureteric stone are found. 3. No abdominal mass lesion or lymphadenopathy is found. 4. No pelvic mass lesion, abscess or lymphadenopathy is seen. Electronically signed by: Joaquina Mejía MD 05/08/2024 09:49 AM EDT
[2024-05-04] MEDS: iohexoL 350 MG/ML 100 ML INFUS..BTL 85 ML IV (12:17)
== END 2024-05-04 11:05 | disposition home or self-care (01) ==
LOC: HO.CT 11:04
PROVIDERS: PCP Internal Medicine; Visit Provider Nurse Practitioner Family
DX: R31.0 Gross hematuria (principal)
CPT/HCPCS: 74178; Q9967

== ENCOUNTER 2024-06-01 15:53 | Outpatient (AMB) | payer BC, SELFPAY ==
--- NOTE | 2024-06-01 15:58 | A.OFFVIS_ITS ---
Intake Visit Reasons: 2m/CT/labs(set) Intake Note: New Patient presents for initial visit for BPH and Erectile Dysfunction Urology Medications: finasteride, sildenafil Blood Thinner: none PVR: 13ml's Wired Music Operator Required: No Allergies shrimp [SHRIMP] Allergy (Intermediate, Verified 06/01/24 20:13) SWELLING shellfish derived Allergy (Unknown, Verified 06/01/24 20:13) Swelling Medication List - Last Reconciled 06/01/24 by MICHAEL Wakefield- finasteride 1 mg PO DAILY minoxidil 2% 1 mL topical BID sildenafil 50 mg PO DAILY PRN HPI Comments Details: Tex is a 58-year-old male patient of Dr. Martin he has a past medical history of genital herpes, hypercholesteremia, fatty liver, GERD, irritable bowel syndrome, vitamin-D deficiency, and migraines. He presents to the office today for follow-up. Of note, patient was seen approximately 2 months ago as a new patient for ongoing lower urinary tract symptoms at which time a CT urogram was ordered for further assessment evaluation. These results reviewed with the patient today. No evidence of renal stones, solid masses, or lesions noted. No ureteric obstruction. No ureteral bladder stone, masses, lesions or distal ureteric stones are seen. No pelvic masses, lesions or lymphadenopathy noted. He reports noting lower urinary tract symptoms have since subsided and feels his increase in hydration has been helpful in alleviating his symptoms. We discussed further workup to include in office cystoscopy given patient with a history of gross hematuria however he feels symptoms have since subsided and will continue with surveillance monitoring at this time. He currently denies any bothersome urinary issues or concerns. We discussed at length potential causes for lower urinary tract symptoms patient is experiencing. Previous workup has also included a bladder ultrasound 02/06 noting diffuse bladder wall thickening. Bladder jets are demonstrated. Pre void bladder volume is approximately 250 mL. Postvoid bladder volume is approximately 30 mL. The prostate measures approximately 55 mL. In review of patient's chart it appears PSAs are as follows: 12/04 0.9, 03/07 0.9, 03/08 0.9, 02/06 1.6 He otherwise denies changes to urinary stream, flank pain, fever, and or chills. In office urinalysis results reviewed with the patient today. Discussed pH 5.5 and drinking adequate amount of water daily. PVR 13 mLs. PFSH Medical History Frequency of micturition Genital herpes in men Hypercholesterolemia Fatty liver GERD (gastroesophageal reflux disease) Irritable bowel syndrome Vitamin D deficiency Lupus anticoagulant positive Migraine Surgical History History of fundoplication No pertinent past surgical history Family History Father Myocardial infarct Brother Myocardial infarct Pancreatic cancer Maternal Uncle Myocardial infarct Paternal Aunt Myocardial infarct Maternal Uncle Barretts esophagus Maternal Grandmother Brain cancer Social History Housing: Apartment Alcohol intake: current Alcohol intake frequency: holidays/special occasions only Alcohol type: hard liquor Comment: 2 x a week 4 shots one time Patient Tobacco Use Status: Never used Tobacco Years Smoked: tinture CBD e-Cigarette/Vaping Use: Never Used Second Hand Smoke Exposure: No service: No Current occupational status: disabled Cognitive needs: No Hearing needs: No Vision needs: Yes Review of Systems Const All systems reviewed & are unremarkable except as noted in HPI and below Physical Exam Const General: cooperative, healthy appearing, comfortable, no acute distress, well developed, alert and awake Orientation/consciousness: patient oriented x3 Limitations: no limitations HEENT Head: Yes normal to inspection, Yes normocephalic and Yes atraumatic Ears: hearing grossly normal bilaterally Eyes General: appearance normal, both eyes and all related structures Neck Neck: Yes normal visual inspection and Yes trachea midline Chest Chest palpation & inspection: normal inspection of the chest Resp Effort & Inspection: normal respiratory effort and able to speak in complete sentences Cardio Rate: regular rate GI Inspection: Yes normal to inspection General: Yes no CVA tenderness Back/Spine/Pelvis Back: no CVA tenderness Skin General skin exam: no rashes or lesions noted Neuro General: patient oriented x3 Extrem General: Yes normal to inspection Psych Appearance: grossly normal and well kempt Mental Status: mental status grossly normal Speech and movement: Normal speech and movement present and Clear speech present Affect: normal affect Attitude: cooperative Thought process: Normal thought process present Thought content: Normal thought content present Insight: Fair insight present (Psych) Judgement: Fair judgement present (Psych) Office Procedures Post Void Residual Post Residual Void Post Void Residual (PVR): 13 40338-[id number] Void Residual by ultrasound Results AMB Urinalysis, Automated UA Leukoctes 0 Chaz/uL Last Edit by Finesse Soliz on 06/01/24 16:09 UA Nitrite Last Edit by Zipzoomdamion Soliz on 06/01/24 16:09 UA Urobilinogen 0.2 mg/dL Last Edit by Hyperion Therapeuticsmasood Soliz on 06/01/24 16:09 UA Protein 0 mg/dL Last Edit by Hyperion Therapeuticsmasood Jetabroadevangelista on 06/01/24 16:09 UA pH 5.5 Last Edit by aPriori Technologiesevangelista on 06/01/24 16:09 UA Blood 0 Oliver/uL Last Edit by aPriori Technologiesevangelista on 06/01/24 16:09 UA Specific [place] 1.030 Last Edit by aPriori Technologiesevangelista on 06/01/24 16:09 UA Ketone Last Edit by aPriori Technologiesevangelista on 06/01/24 16:09 UA Bilirubin 0 mg/dL Last Edit by aPriori Technologiesevangelista on 06/01/24 16:09 UA Glucose 0 mg/dL Last Edit by Hyperion Therapeuticsmasood Jetabroadevangelista on 06/01/24 16:09 Results Reviewed Results Reviewed: Laboratory Last Values Urine pH (Auto) 5.5 06/01/24 16:08 Specific [place] (Auto) 1.030 06/01/24 16:08 Urine Protein (Auto) 0 mg/dL 06/01/24 16:08 Glucose (UA)(Auto) 0 mg/dL 06/01/24 16:08 Urine Blood (Auto) 0 Oliver/uL 06/01/24 16:08 Urine Bilirubin (Auto) 0 mg/dL 06/01/24 16:08 Urine Urobilinogen (Auto) 0.2 mg/dL 06/01/24 16:08 Leukocyte Esterase (Auto) 0 Chaz/uL 06/01/24 16:08 Date of Service: 05/04/24 EXAMINATION: CT ABDOMEN AND PELVIS WITHOUT AND WITH CONTRAST FINDINGS: LUNG BASES: Bilateral lung bases are clear. LIVER: No focal lesion is seen in the liver. GALLBLADDER AND BILIARY TREE: Gallbladder appears unremarkable without calcified stones. Common bile duct is not dilated. SPLEEN: The spleen is normal in size without focal lesion. PANCREAS: The pancreas appears unremarkable. ADRENAL GLANDS: Adrenal glands are normal in size without focal lesion bilaterally. KIDNEYS: Precontrast images show no calcified renal stones. Post contrast nephrographic phase images show normal uniform bilateral nephrograms. Excretory phase images show normal excretion of contrast into bilateral renal calyces, pelvises and ureters without filling defects. BOWELS: There is no abnormal dilatation of large and small bowel loops. RETROPERITONEUM: No abnormally enlarged retroperitoneal lymph nodes, mass or hematoma could be seen. BLOOD VESSELS: Abdominal aorta is normal in size and smoothly patent. ABDOMINAL WALL: Small umbilical hernia containing mesenteric fat is seen. A focal sagittal scar is seen in right anterior subcutaneous abdominal wall at L4 level. PERITONEUM: There was no ascites. There were no abdominal peritoneal inflammatory changes seen. No free peritoneal air was seen. No abnormally enlarged mesenteric lymph nodes are found. BONES: No fracture or dislocation. No focal bone lesion diagnostic of metastatic disease could be seen in the lumbar region. EXAMINATION: CT pelvis. FINDINGS: URINARY BLADDER AND URETERS: Precontrast images show no calcified urinary bladder stone or distal ureteric stones. Urinary bladder fills normally with contrast without filling defects. There is normal visualization of bilateral distal ureters which are normal in size. BOWELS: There is no abnormal dilatation of large and small bowel loops. Normal appendix is seen projecting medial to the cecum. GENITAL ORGANS: Seminal vesicles are unremarkable. Prostate gland is normal. LYMPH NODES: No abnormally enlarged iliac or inguinal lymph nodes are seen. PERITONEUM: No inflammatory changes, ascites or free peritoneal air are found in the pelvis. BONES: No fracture or dislocation. No focal bone lesion diagnostic of metastatic disease could be seen in the pelvis. IMPRESSION: 1. No evidence of renal stones, solid mass lesions or ureteric obstruction. 2. No urinary bladder stone, mass lesions or distal ureteric stone are found. 3. No abdominal mass lesion or lymphadenopathy is found. 4. No pelvic mass lesion, abscess or lymphadenopathy is seen Assessment & Plan Assessment & Plan (1) BPH (benign prostatic hyperplasia): Code(s): N40.0 - Benign prostatic hyperplasia without lower urinary tract symptoms Category: Medical (2) Lower urinary tract symptoms: Code(s): R39.9 - Unspecified symptoms and signs involving the genitourinary system Category: Medical (3) Frequency of micturition: Code(s): R35.0 - Frequency of micturition Category: Medical Plan In office urinalysis results reviewed physician today; as noted above. PVR [address] results reviewed with the patient today; as noted above. Discussed, educated, and stressed the importance of adequate hydration relation to lower urinary tract symptoms as well as overall health and well-being. Patient currently denies any bothersome urinary issues or concerns. He reports be happy with current voiding parameters. Will obtain PSA in 6 months. Follow-up in 6 months with imaging to be completed prior; or sooner with any issues, concerns, and or questions. Orders: Orders AMB Urinalysis Automated Today Z13.9 - Encounter for screening, unspecified AMB Post Void Residual by ultrasound Today R39.9 - Unspecified symptoms and signs involving the genitourinary system PSA,Total (Free>4and<10) Today N40.0 - Benign prostatic hyperplasia without lower urinary tract symptoms Patient Instructions: The patient had an opportunity to ask questions regarding the treatment plan. All questions were answered. Physical exam, labs, and imaging were discussed and reviewed in detail. As well as risks, benefits, and discussion of treatment choices. No major barriers to understanding were identified. The patient expressed understanding and agreement with the above treatment plan. The patient was made aware they should contact our office by phone for worsening of their current condition, the appearance of new symptoms, or with any questions or concerns. Compliance is encouraged with any medications and follow up testing that is ordered. It is a privilege to be allowed the opportunity to participate in? your urological care.? Again, if you have any questions or concerns If you have any questions or concerns please do not hesitate to contact me. The office is [phone]. This note is constructed using voice recognition software. While every effort has been made to ensure accuracy fire safety manager errors may have been included. Yours sincerely, CLIFF Wakefield Coding Level of Care Code Est Pt Level 3 (96150) Complex EM visit Add On G2211 Diagnoses BPH (benign prostatic hyperplasia) N40.0 Lower urinary tract symptoms R39.9 Frequency of micturition R35.0 CPT Codes Post Residual Void - PVR CPT Code: 74054-Pqii Void Residual by ultrasound ([id number])
== END 2024-06-01 16:30 | disposition home or self-care (01) ==
PROVIDERS: PCP Internal Medicine; Referring Provider Internal Medicine; Visit Provider Nurse Practitioner Family
DX: N40.0 Benign prostatic hyperplasia without lower urinary tract symptoms (principal); R39.9 Unspecified symptoms and signs involving the genitourinary system; R35.0 Frequency of micturition; Z13.9 Encounter for screening, unspecified
CPT/HCPCS: 99213

== ENCOUNTER → 2024-06-01 15:53 | Outpatient (BNVA) | payer BC, SELFPAY | PROVIDERS: PCP Internal Medicine; Visit Provider Nurse Practitioner Family | DX: N40.1 Benign prostatic hyperplasia with lower urinary tract symptoms (principal); R35.0 Frequency of micturition; R39.9 Unspecified symptoms and signs involving the genitourinary system | CPT/HCPCS: 51798; 81003 ==

== ENCOUNTER 2024-08-08 09:11 | Outpatient (AMB) | payer BC, SELFPAY ==
--- OUTSIDE RECORDS SUMMARY | 2024-08-08 09:12 | XMS_ITS | Continuity of Care Document ---
Author Organization [facility] Address [address] [place] [address]- Care Team Providers Care Flat Bed Knitter Name Role Phone Po Ming TRIVEDI Primary Care Physician [phone] Encounter [facility] [place] Date(s): 12/14/21 - 01/13/22 [facility] [address] [place] [address]- Medications omeprazole 20 mg oral enteric coated capsule 1 capsule = 20 mg, By Mouth, 2 times a day, # 180 capsule, 4 Refills, Maintenance, 12/20/21 11:40:00 EDT, EC Capsule, [facility] #[id number], Partial fill upon patient request if the prescription is for a schedule II opioid drug. Start Date: 12/20/21 Status: Ordered PEG-3350 with Electrolytes (Eqv-NuLYTELY) oral powder for reconstitution 240 mL, By Mouth, Every 10 minutes, # 4,000 mL, 0 Refills, Maintenance, 12/20/21 8:38:00 EDT, [facility] #[id number], Partial fill upon patient request if the prescription is for a schedule II opioid drug., 240 mL By Mouth Every 10 minutes Start Date: 12/20/21 Status: Ordered
--- OUTSIDE RECORDS SUMMARY | 2024-08-08 09:12 | XMS_ITS | Continuity of Care Document ---
Author Organization [facility] Address [address] [place] [address]- Care Team Providers Care Nuclear Logging Engineer Name Role Phone Ming Martin MD Primary Care Physician Encounter [facility] [place] Date(s): 12/20/22 - 12/20/[address] [address]- [place] Discharge Disposition: A-D/C Home Attending Physician: Napoleon Mares MD Admitting Physician: Napoleon Mares MD Referring Physician: Onur Bates MD Allergies, Adverse Reactions, Alerts Substance Reaction Severity Status Shrimp Persistent Moderate Active Medications omeprazole 20 mg oral enteric coated capsule 1 capsule = 20 mg, By Mouth, 2 times a day, # 180 capsule, 4 Refills, Maintenance, 12/20/21 11:40:00 EDT, EC Capsule, [facility] #[id number], Partial fill upon patient request if the prescription is for a schedule II opioid drug. Start Date: 12/20/21 Status: Ordered PEG-3350 with Electrolytes (Eqv-NuLYTELY) oral powder for reconstitution 240 mL, By Mouth, Every 10 minutes, # 4,000 mL, 0 Refills, Maintenance, 12/20/21 8:38:00 EDT, [facility] #[id number], Partial fill upon patient request if the prescription is for a schedule II opioid drug., 240 mL By Mouth Every 10 minutes Start Date: 12/20/21 Status: Ordered Social History Social History Type Response Smoking Status Never (less than 100 in lifetime) entered on: 11/07/22 Sex Patient Care team information Care Team Personnel Name: Ming Martin MD Position: Reference Physician Member Role: PCP Address: Address: [address] [place] [address]- Care Team Related Persons Name: MARIA CHANDRA Address: home [address] [place] [address]
--- OUTSIDE RECORDS SUMMARY | 2024-08-08 09:12 | XMS_ITS | Continuity of Care Document ---
Author Organization [facility] Address [address] [place] [address] [address] [place] [address]- Care Team Providers Care Physical Plant Manager Name Role Phone Po Ming TRIVEDI Primary Care Physician [phone] Encounter [facility] [place] Date(s): 08/14/23 - 09/13/23 [facility] [address] [place] [address]- Attending Physician: AdmIgnacio richard Admitting Physician: AdmIgnacio richard Referring Physician: Admtr, Ar8 Allergies, Adverse Reactions, Alerts Substance Reaction Severity Status Shrimp 1 lip swelling Persistent Moderate Active 1does OK w/lobster and other shellfish; this allergy seems to be improving over time (has eaten shrimp since without reaction) Medications biotin 1000 mcg oral tablet 1 tablet = 1,000 mcg, By Mouth, Daily, Maintenance, 03/08/23 8:39:00 EDT Start Date: 03/08/23 Status: Ordered Colace sodium 100 mg oral capsule 100 mg, 1, capsule, By Mouth, 2 times a day, PRN, # 14 capsule, Refills 0, Tot. Refills 0, Maintenance, for constipation, 03/13/23 8:39:00 EDT, Route to Pharmacy Electronically, [facility]/pharmacy #[id number], Partial fill upon patient request if the prescription... Start Date: 03/13/23 Stop Date: 03/20/23 Status: Ordered Colace sodium 100 mg oral capsule 100 mg, 1, capsule, By Mouth, 2 times a day, PRN, # 60 capsule, Refills 0, Tot. Refills 0, Maintenance, for constipation, 03/27/23 13:37:00 EDT, Route to Pharmacy Electronically, [facility]/pharmacy #[id number], Partial fill upon patient request if the prescriptio... Start Date: 03/27/23 Status: Ordered Fish Oil By Mouth, 0 Refills, Maintenance, 03/27/23 13:01:00 EDT, Partial fill upon patient request if the prescription is for a schedule II opioid drug. Start Date: 03/27/23 Status: Ordered Milk Thistle = 1,000 mg, By Mouth, Daily, Maintenance, 03/08/23 8:38:00 EDT Start Date: 03/08/23 Status: Ordered minoxidil 5% topical solution 1 application, Topically, 2 times a day, Maintenance, 03/08/23 8:40:00 EDT Start Date: 03/08/23 Status: Ordered omeprazole 20 mg oral enteric coated capsule 1 capsule = 20 mg, By Mouth, 2 times a day, PRN as needed for GERD, Maintenance, 03/08/23 8:37:00 EDT, Partial fill upon patient request if the prescription is for a schedule II opioid drug. Start Date: 03/08/23 Status: Ordered Social History Social History Type Response Smoking Status Never (less than 100 in lifetime) entered on: 11/07/22 Sex Patient Care team information Care Team Personnel Name: Ming Martin MD Position: Reference Physician Member Role: PCP Address: Address: [address] [place] [address]- Care Team Related Persons Name: MARIA CHANDRA Address: home [address] [place] [address]
--- OUTSIDE RECORDS SUMMARY | 2024-08-08 09:12 | XMS_ITS | Continuity of Care Document ---
Author Organization [facility] Address [address] [place] [address]- Care Team Providers Care Log Pond Worker Name Role Phone Po Ming TRIVEDI Primary Care Physician Encounter [facility] [id number] Date(s): 07/31/21 - 10/21/[address] [address] [phone] Attending Physician: Onur Bates MD Admitting Physician: Onur Bates MD Referring Physician: Onur Bates MD
--- OUTSIDE RECORDS SUMMARY | 2024-08-08 09:13 | XMS_ITS | Continuity of Care Document ---
Author Organization [facility] Address [address] [place] [address]- Care Team Providers Care Envelope Machine Operator Name Role Phone Ming Martin MD Primary Care Physician Encounter [facility] [id number] Date(s): 12/27/23 - 04/24/24 [facility] [address] [place], [place] [address] Attending Physician: Shelbi TRIVEDI ([facility]), [facility] Sabrina Allergies, Adverse Reactions, Alerts Substance Reaction Severity [...] 03/13/23 8:39:00 EDT, Route to Pharmacy Electronically, [facility]/pharmacy #[id number], Partial fill upon patient request if the prescription... Start Date: 03/13/23 Stop Date: 03/20/23 Status: Ordered Colace sodium 100 mg oral capsule 100 mg, 1, capsule, By Mouth, 2 times a day, PRN, # 60 capsule, Refills 0, Tot. Refills 0, Maintenance, for constipation, 03/27/23 13:37:00 EDT, Route to Pharmacy Electronically, [facility]/pharmacy #[id number], Partial fill upon patient request if [...] Reference Physician Member Role: PCP Address: Address: [address] [place] [address]- Care Team Related Persons Name: MARIA CHANDRA Address: home [address] [place] [address]
--- OUTSIDE RECORDS SUMMARY | 2024-08-08 09:13 | XMS_ITS | Continuity of Care Document ---
Author Organization [facility] Address Unknown Care Team Providers Care Power Barker Name Role Phone Po Ming TRIVEDI Primary Care Physician Encounter [facility] [place] Date(s): 08/16/21 - 08/23/21 [facility] Encounter Diagnosis GERD (gastroesophageal reflux disease)(Discharge Diagnosis) - 08/16/21 Attending Physician: James Jurado MD Referring Physician: Jalen Sanz MD Problem List Diagnosis Diagnosis Type Effective Dates Health Status Cl inical Service Informant GERD (gastroesophagea l reflux disease) Discharge Diagnosis 08/16/21 Vital Signs Most recent to oldest [Reference Range]: 1 Weight 78.2 kg (08/16/21 2:21 PM) Pulse Rate [55-90 bpm] 88 bpm (08/16/21 2:21 PM) Blood Pressure [90-138/55-84 mm Hg] 137/ 79mm Hg (08/16/21 2:21 PM) Temperature [96.8-100.4 DegF] 97.4 DegF (08/16/21 2:21 PM)
--- OUTSIDE RECORDS SUMMARY | 2024-08-08 09:13 | XMS_ITS | Continuity of Care Document ---
Author Organization [facility] Address [address] [place] [address]- Care Team Providers Care Medical Data Analyst Name Role Phone Po Ming TRIVEDI Primary Care Physician Encounter [facility] [place] Date(s): 02/20/22 - 03/22/22 [facility] [address] [place] [address]- [place] Allergies, Adverse Reactions, Alerts Substance Reaction Severity Status Shrimp Persistent Moderate Active Medications omeprazole 20 mg oral enteric coated capsule 1 capsule = 20 mg, By Mouth, 2 times a day, # 180 capsule, 4 Refills, Maintenance, 12/20/21 11:40:00 EDT, EC Capsule, [facility] #[id number], Partial fill upon patient request if the prescription is for a schedule II opioid drug. Start Date: 12/20/21 Status: Ordered PEG-3350 with Electrolytes (Eqv-NuLYTELY) oral powder for reconstitution 240 mL, By Mouth, Every 10 minutes, # 4,000 mL, 0 Refills, Maintenance, 12/20/21 8:38:00 EDT, [facility] #[id number], Partial fill upon patient request if the prescription is for a schedule II opioid drug., 240 mL By Mouth Every 10 minutes Start Date: 12/20/21 Status: Ordered
--- OUTSIDE RECORDS SUMMARY | 2024-08-08 09:13 | XMS_ITS | Continuity of Care Document ---
Author Organization [facility] Address [address] [place] [address] [address] [place] [address]- Care Team Providers Care Peer Support Specialist Name Role Phone Ming Martin MD Primary Care Physician [place] [facility] [place] - 11/14/[address] [place] [address]- Encounter Diagnosis GERD without esophagitis(Discharge Diagnosis) - 11/07/22 Attending Physician: Onur Bates MD Referring Physician: Ming Martin MD Allergies, Adverse Reactions, Alerts Substance Reaction Severity Status Shrimp Persistent Moderate Active Medications omeprazole 20 mg oral enteric coated capsule 1 capsule = 20 mg, By Mouth, 2 times a day, # 180 capsule, 4 Refills, Maintenance, 12/20/21 11:40:00 EDT, EC Capsule, [id number], Partial fill upon patient request if the prescription is for a schedule II opioid drug. Start Date: 12/20/21 Status: Ordered PEG-3350 with Electrolytes (Eqv-NuLYTELY) oral powder for reconstitution 240 mL, By Mouth, Every 10 minutes, # 4,000 mL, 0 Refills, Maintenance, 12/20/21 8:38:00 EDT, [id number], Partial fill upon patient request if the prescription is for a schedule II opioid drug., 240 mL By Mouth Every 10 minutes Start Date: 12/20/21 Status: Ordered Problem List Diagnosis Diagnosis Type Effective Dates Health Status Clinical Service Informant GERD without esophagitis Discharge Diagnosis 11/07/22 Vital Signs Most recent to oldest [Reference Range]: 1 Height 180 cm (11/07/22 2:44 PM) Weight 76.8 kg (11/07/22 2:44 PM) Pulse Rate [55-90 bpm] 78 bpm (2/22/23 2:44 PM) Body Mass Index [18.5-24.99 kg/m2] 23.7 kg/m2 (11/07/22 2:44 PM) Blood Pressure [90-138/55-84 mm Hg] 126/ 82mm Hg (11/07/22 2:44 PM) Respiratory Rate [16-30 br/min] 16 br/mi n (11/07/22 2:44 PM) Temperature [96.8-100.4 DegF] 97.1 DegF (11/07/22 2:44 PM) Blood pressure sites Arm, left (11/07/22 2:44 PM) Temperature Route Temporal (11/07/22 2:44 PM) Weight Obtained Via Standing scale (11/07/22 2:44 PM) Social History Social History Type Response Smoking Status Never (less than 100 in lifetime) entered on: 11/07/22 Sex Patient Care team information Care Team Personnel Name: Ming Martin MD Position: Reference Physician Member Role: PCP Address: Address: [address] [place] [facility] [place] [address]- Care Team Related Persons Name: MARIA CHANDRA Address: home [address] [place] [address]
--- OUTSIDE RECORDS SUMMARY | 2024-08-08 09:13 | XMS_ITS | Continuity of Care Document ---
Author Organization [facility] Address [address] [place] [address] [address] [place] [address]- Care Team Providers Care Park Police Name Role Phone Ming Martin MD Primary Care Physician [phone] [place] [facility] [place]16[place] - 12/16/[address] [place] [address]- Allergies, Adverse Reactions, Alerts Substance Reaction Severity Status Shrimp Persistent Moderate Active Medications omeprazole 20 mg oral enteric coated capsule 1 capsule = 20 mg, By Mouth, 2 times a day, # 180 capsule, 4 Refills, Maintenance, 12/20/21 11:40:00 EDT, EC Capsule, [facility] #[id number], Partial fill upon patient request if the prescription is for a schedule II opioid drug. Start Date: 12/20/21 Status: Ordered PEG-3350 with Electrolytes (Eqv-NuLYTELY) oral powder for reconstitution 240 mL, By Mouth, Every 10 minutes, # 4,000 mL, 0 Refills, Maintenance, 12/20/21 8:38:00 EDT, [facility] #[id number], Partial fill upon patient request if the [...] Reference Physician Member Role: PCP Address: Address: [address] [place] [address]- Care Team Related Persons Name: MARIA CHANDRA Address: home [address] [place], [place] [address]
--- OUTSIDE RECORDS SUMMARY | 2024-08-08 09:13 | XMS_ITS | Continuity of Care Document ---
Author Organization [facility] Address [address] [place] [address]- Care Team Providers Care Online Banking Specialist Name Role Phone Umu TRIVEDI, Jalen Ochoa Primary Care Physician [id number] Date[facility] 12/02/20 - 01/01/[address] [address]
--- OUTSIDE RECORDS SUMMARY | 2024-08-08 09:13 | XMS_ITS | Continuity of Care Document ---
Author Organization [facility] [place] Address [address] [place] [address]- Care Team Providers Care Yardage Control Clerk Name Role Phone Po Ming TRIVEDI Primary Care Physician Encounter [facility] [id number] Date(s): 11/17/21 - 12/17/21 [facility] [place] [address] [place] [address]- Attending Physician: Ignacio Dela Cruz Admitting Physician: Ignacio Dela Cruz Referring Physician: Ignacio Dela Cruz
--- OUTSIDE RECORDS SUMMARY | 2024-08-08 09:13 | XMS_ITS | Continuity of Care Document ---
Author Organization [facility] [place] Address [address] [place] [address]- Care Team Providers Care Efficiency Miner Blasting Name Role Phone Umu TRIVEDI, Jalen Ochoa Primary Care Physician Encounter [facility] [id number] Date(s): 12/02/20 - 03/11/21 [facility] [address] [place] [address]- Attending Physician: Johnson Vigil MD, Anderson
--- OUTSIDE RECORDS SUMMARY | 2024-08-08 09:13 | XMS_ITS | Continuity of Care Document ---
Author Organization [facility] Address [address] [place] [address] [address] [place] [address]- Care Team Providers Care Department Editor Name Role Phone Ming Martin MD Primary Care Physician [phone] Encounter [facility] [place] Date(s): 03/28/22 - 07/20/[address] [place] [address]- [place] Attending Physician: Onur Bates MD Referring Physician: Ming Martin MD Allergies, Adverse Reactions, Alerts Substance Reaction Severity Status Shrimp Persistent Moderate Active Medications omeprazole 20 mg oral enteric coated capsule 1 capsule = 20 mg, By Mouth, 2 times a day, # 180 capsule, 4 Refills, Maintenance, 12/20/21 11:40:00 EDT, EC Capsule, [facility] #[id number], Partial fill upon patient request if the prescription is for a schedule II opioid drug. Start Date: 12/20/21 Status: Ordered PEG-3350 with Electrolytes (Eqv-NuLYTELY) oral powder for reconstitution 240 mL, By Mouth, Every 10 minutes, # 4,000 mL, 0 Refills, Maintenance, 12/20/21 8:38:00 EDT, [facility] #[id number], Partial fill upon patient request if the prescription is for a schedule II opioid drug., 240 mL By Mouth Every 10 minutes Start Date: 12/20/21 Status: Ordered Patient Care team information Personnel Name: Ming Martin MD Address: Address: [address] [place] [id number]
--- OUTSIDE RECORDS SUMMARY | 2024-08-08 09:13 | XMS_ITS | Continuity of Care Document ---
Author Organization [facility] Address [address] [place] [address] [address] [place] [address]- Care Team Providers Care Retail General Manager Name Role Phone Ming Martin MD Primary Care Physician [place] [facility] [place] 11/16/22 - 02/16/[address] [place] [address]- [place] Attending Physician: Jana TRIVEDI, Onur Fink Allergies, Adverse Reactions, Alerts Substance Reaction Severity Status Shrimp Persistent Moderate Active Medications omeprazole 20 mg oral enteric coated capsule 1 capsule = 20 mg, By Mouth, 2 times a day, # 180 capsule, 4 Refills, Maintenance, 12/20/21 11:40:00 EDT, EC Capsule, [facility] #[id number], Partial fill upon patient request if the prescription is for a schedule II opioid drug. Start Date: 12/20/21 Status: Ordered PEG-3350 with Electrolytes (Eqv-NuLYTELY) oral powder for reconstitution 240 mL, By Mouth, Every 10 minutes, # 4,000 mL, 0 Refills, Maintenance, 12/20/21 8:38:00 EDT, [facility] #[id number], Partial fill upon patient request if the [...] Reference Physician Member Role: PCP Address: Address: [address] [place] [address]- Care Team Related Persons Name: CHANDRA, MARIA Address: home [address] [place], [place] [address]
--- OUTSIDE RECORDS SUMMARY | 2024-08-08 09:13 | XMS_ITS | Continuity of Care Document ---
Author Organization [facility] Address [address] [place] [address] [address] [place] [address]- Care Team Providers Care Embedder Name Role Phone Po Ming TRIVEDI Primary Care Physician [place] [facility] [place]/06/23 - 06/05/[address] [place] [address]- Allergies, Adverse Reactions, Alerts Substance Reaction Severity [...] 03/13/23 8:39:00 EDT, Route to Pharmacy Electronically, [facility]/pharmacy #[id number], Partial fill upon patient request if the prescription... Start Date: 03/13/23 Stop Date: 03/20/23 Status: Ordered Colace sodium 100 mg oral capsule 100 mg, 1, capsule, By Mouth, 2 times a day, PRN, # 60 capsule, Refills 0, Tot. Refills 0, Maintenance, for constipation, 03/27/23 13:37:00 EDT, Route to Pharmacy Electronically, [facility]/pharmacy #[id number], Partial fill upon patient request if [...] Reference Physician Member Role: PCP Address: Address: [address] [place] [address]- Care Team Related Persons Name: MARIA CHANDRA Address: home [address] [place], [place] [address]
--- OUTSIDE RECORDS SUMMARY | 2024-08-08 09:13 | XMS_ITS | Continuity of Care Document ---
Author Organization [facility] ter Address [address] [place] [id number]- Care Team Providers Care Professor Of Philosophy Name Role Phone Po Ming TRIVEDI Primary Care Physician Encounter [facility] Date(s): 03/12/23 - 03/13/[address] [address]- Discharge Disposition: A-D/C Home Attending Physician: Onur Bates MD Admitting Physician: Onur Bates MD Referring Physician: Onur Bates MD Allergies, [...] 03/13/23 8:39:00 EDT, Route to Pharmacy Electronically, [facility]/pharmacy #[id number], Partial fill upon patient request if the prescription... Start Date: 03/13/23 Stop Date: 03/20/23 Status: Ordered Milk Thistle = 1,000 mg, [...] opioid drug. Start Date: 03/08/23 Status: Ordered oxyCODONE 5 mg oral tablet 5 mg, 1, tablet, By Mouth, Every 6 hours, PRN, # 12 tablet, Refills 0, Tot. Refills 0, Acute 03/17/23 8:38:00 EDT, as needed for pain, 03/13/23 8:38:00 EDT, Route to Pharmacy Electronically, [facility]/pharmacy #[id number], Partial fill upon patient request if the... Start Date: 03/13/23 Stop Date: 03/17/23 Status: Ordered oxyCODONE 5 mg oral tablet 5 mg, Tablet, By Mouth, Every 4 hours, PRN for Pain , Severe, Routine, 03/12/23 16:22:00 EDT Start Date: 03/12/23 Stop Date: 03/13/23 Status: Discontinued Procedures Procedure Date Related Diagnosis Body Site Status Laparoscopic Toupet fundoplication 03/12/23 Completed Vital Signs Most recent to oldest [Reference Range]: 1 2 3 Height 175.3 cm (03/13/23 7:20 AM) 175.3 cm (03/13/23 4:30 AM) 175.3 cm (03/13/23 12:15 AM) Weight 78.5 kg (03/12/23 7:52 PM) 75.3 kg (03/12/23 11:41 AM) 76.3 kg (03/08/23 9:35 AM) Oxygen Saturation [94-100 %] 98 % (03/13/23 7:20 AM) 99 % (03/13/23 4:30 AM) 99 % (03/13/23 12:15 AM) Pulse Rate [55-90 bpm] 86 bpm (03/13/23 7:20 AM) 75 bpm (03/13/23 4:30 AM) 87 bpm (03/13/23 12:15 AM) Body Mass Index [18.5-24.99 kg/m2] 25.54 kg/m2 *H* (03/12/23 7:52 PM) 24.5 kg/m2 (03/12/23 11:41 AM) 24.83 kg/m2 (03/08/23 9:35 AM) Blood Pressure [90-138/55-84 mm Hg] 121/74mm Hg (03/13/23 7:20 AM) 117/68mm Hg (03/13/23 4:30 AM) 139/75mm Hg *H* (03/13/23 12:15 AM) Respiratory Rate [16-30 br/min] 16 br/min (03/13/23 10:17 AM) 16 br/min (03/13/23 9:17 AM) 15 br/min *L* (03/13/23 7:20 AM) Temperature [96.8-100.4 DegF] 97.2 DegF (03/13/23 7:20 AM) 98.4 DegF (03/13/23 4:30 AM) 98.8 DegF (03/13/23 12:15 AM) Liters per Minute 6 L/min (03/12/23 4:15 PM) Mode of Delivery (Oxygen) Room air (03/13/23 7:20 AM) Room air (03/13/23 4:30 AM) Room air (03/13/23 12:15 AM) Blood pressure sites Arm, left (03/13/23 7:20 AM) Arm, right (03/13/23 4:30 AM) Arm, right (03/13/23 12:15 AM) Temperature Route Oral (03/13/23 7:20 AM) Oral (03/13/23 4:30 AM) Oral (03/13/23 12:15 AM) Dry Weight 78.5 kg (03/12/23 7:52 PM) 75.3 kg (03/12/23 11:41 AM) 76.3 kg (03/08/23 9:35 AM) Weight Obtained Via Patient/family state d (03/08/23 9:35 AM) Dry Weight Obtained Via Standing scale (03/12/23 11:41 AM) Patient/family stated (03/08/23 9:35 AM) Social History Social History Type Response Smoking Status Never (less than 100 in lifetime) entered on: 11/07/22 Sex Hospital Progress note * Tatiana TRIVEDI, Bebo Fitch: PERFORM, MODIFY Event Display: Progress Note Hospital Authored Date: [id number] Patient: ??HUMBERTO CRANE ? Age:??57 Years?Sex:??Male?:??1965?? Subjective No acute overnight event. Patient reported abdominal pain more on the right side that is exacerbated with movement. Endorsed some nausea, throat irritation and left shoulder pain and back pain. Denied fever/chills/reflux/SOB. OOB. Tolerating clear liquid diet. Voiding. Physical Exam Vitals & Measurements T:??98.4?F?? HR:??75??(Peripheral)?? RR:??18?? BP:??117/68?? SpO2:??99%?? HT:??175.3??cm?? WT:??78.5??kg?? BMI:??25.54?? General - NAD, alert and awake Cardiac - RRR Respiratory - non labored?? Abdomen - soft, mildly distended, tenderness rosa elena-incisions with band-aids c/d/i over 5 lap port sites Neuro - alert and oriented x3 ?? Assessment/Plan Assessment:??Humberto Crane is a 57 year old man with history of longstanding GERD for 30+ years who is s/p Toupet fundoplication with Dr. Bates on 03/12. Procedure was uncomplicated and well tolerated. Patient is hemodynamically stable and meeting recovery milestones. If patient is able to tolerate diet advance, will be appropriate for discharge ?? Plan ??- Advance to fundoplication diet ??- Nutrition consult?- Pain control and antiemetics PRN ??-??Flexeril PRN for muscle spasm ??- DVT Prophylaxis: Enoxaparin, SCDs ??-??likely dc this afternoon ?? Please page [facility] [phone] for any concerns?? Discussed with Dr. Lora Intake and Output Intake and Output Results?? This visit (24 hour periods starting at 07:00 EDT)? 03/13/23 *?? 03/12/23?? 03/11/23?? Total Summary?Intake mL?? --?? 675?? --?Output mL?? --?? 3,750?? --?Fluid Balance ?? --?? -3,075?? --?? Intake (1)?Lactated Ringers Injection 1000 mL mL?? --?? 675?? --?Total?? --?? 675?? --?? Output (1)?Urine Voided mL?? --?? 3,750?? --?Total?? --?? 3,750?? --?? Counts (1)?Urine Voided mL?? --?? 3,750?? --? * This column has not completed the indicated time period.?? Labs Last 24 Hours BLOOD COUNT & DIFF ? Event Name?? Event Result?? Date/Time?? WBC 14.7 k/mm3??High 03/13/23 05:31:00 RBC 4.94 m/mm3 03/13/23 05:31:00 Hgb 14.3 Gm/dL 03/13/23 05:31:00 Hct 43 % 03/13/23 05:31:00 MCV 87 femtoliters 03/13/23 05:31:00 MCH 28.9 pg 03/13/23 05:31:00 MCHC 33.3 g/dL 03/13/23 05:31:00 Platelet Count 248 k/mm3 03/13/23 05:31:00 MPV 9.9 femtoliters 03/13/23 05:31:00 Nucleated RBC (Automated) 0 #/100 WBC'S 03/13/23 05:31:00 ? * Sancho KAUFMAN, Beatriz Dudley: PERFORM, SIGN, VERIFY Event Display: Progress Note Hospital Authored Date: Patient: HUMBERTO CRANE Age: 57 years Sex: Male : 1965 Associated Diagnoses: None Author: Sancho KAUFMAN, Beatriz Dudley Findings Problem Related to Alteration in Comfort : Alteration in Comfort/new 03/13/2023 2:00 EDT Alteration in Comfort Related to Surgery Goals & Outcomes: Comfort Pt will report acceptable level of comfort & pain control, Pt will state importance of adhering to pain strategy regime, Pt will demonstrate necessary skills to manage pain Interventions Implemented: Comfort Assess pain using appropriate pain scale/tools, Assess aggravating factors & prevent them accordingly, Assess alleviating factors & promote them accordingly BH Goals/Interventions, Comfort Yes Comfort, Problem Start 03/13/2023 2:59 Reviewed plan with, Comfort Patient Patient Progression, Comfort Plan Initiation Comfort, Problem Ongoing Yes . Evaluation Pt A&OX4, VSS. LSCTA pt denies any SOB, pulling 1000ml with IS. ABD with hypo BSX4, pt tolerating clear liquid diet. Lap sites C/D/I. Pt medicated with oxycodone and Tylenol for pain with good effect. Voiding in the urinal and ambulating to the BR with assist, steady gait. No edema noted, +PP, C-boots on. IVF infusing. Call freeman with in reach. . * Chanell Fitzgerald MD: MODIFY, SIGN, VERIFY, PERFORM Event Display: Progress Note Hospital Authored Date: Patient: HUMBERTO CRANE Age: 57 years Sex: Male : 1965 Associated Diagnoses: None Author: Chanell Fitzgerald MD Subjective Patient seen and examined for postop check following Toupet fundoplication and PEH repair with Dr. Bates. Pain is well controlled on the current regimen. Patient has been OOB and ambulating sinceOR. Voiding without issue. Tolerating a clear diet without nausea or vomiting. Otherwise denies anychest pain, shortness of breath, fever, chills, headache or dizziness. Objective Temperature 97.5 (16:21) Systolic Blood Pressure 144 (17:21) Diastolic Blood Pressure 95 (17:21) Pulse 85 (17:21) SpO2 100 (17:21) Respiratory Rate 15 (17:21) Physical Exam General: Well appearing, in no acute distress. Cardiovascular: Regular rate and rhythm. No murmurs appreciated. Respiratory: Normal work of breathing. Clear to auscultation bilaterally. Gastrointestinal: Soft, nontender, nondistended. Incisions clean, dry and intact. Skin: No petechia or purpura. No rashes or lesions. Extremities: No peripheral edema noted. Palpable distal pulses bilaterally. Assessment Patient is a 57 year old male who is now status post Toupet fundoplication and PEH repair. Procedure was uncomplicated and well tolerated. Pain is controlled and patient is meeting all postoperative goals. Only coimplaint is some muscles spasm in his back and that he is having trouble sleeping due to having to pee frequently Plan Clear liquid diet as tolerated DC IVF Pain control PRN antiemetics PRN flexeril for muscle spasm Note * Damaris Rascon RN: PERFORM Event Display: Discharge/Transfer Note Hospital Authored Date: [id number] Nursing Discharge Note Entered On: 03/13/2023 13:13 EDT Performed On: 03/13/2023 13:12 EDT by Damaris Rascon RN Nursing Discharge Note 2 Discharge Time : 03/13/2023 13:30 EDT Discharge Level of Care at Discharge : Home/Care Home/Foster Care Patient Left Unit Via : Wheelchair Patient Accompanied Off Unit with : Significant other DC Instructions Provided & Signed by Pt : Yes Patient Understands D/C Instructions : Yes Patient Instructions Discharge Signed : Yes Did Pt have Specialty Bed or Wound Vac : No Damaris Rascon RN - 03/13/2023 13:12 EDT * Tatiana TRIVEDI, Bebo Fitch: PERFORM Event Display: Discharge/Transfer Note Hospital Authored Date: [id number] Patient: ??HUMBERTO CRANE ? Age:??57 Years?Sex:??Male?:??1965?? Admit Date Admission Date: 03/12/2023 Discharge Date 03/13/23 Discharge Diagnoses GERD (gastroesophageal reflux disease), 03/12/2023 Hospital Course Humberto Crane is a 57 year old man with history of longstanding GERD for 30+ years who is s/p Toupet fundoplication with Dr. Bates on 03/12. Procedure was uncomplicated and well tolerated. Patient is hemodynamically stable and meeting recovery milestones. If patient is able to tolerate diet advance, will be appropriate for discharge Objective/Physical Exam on Day of Discharge Vitals & Measurements T:??97.2?F?? HR:??86??(Peripheral)?? RR:??16?? BP:??121/74?? SpO2:??98%?? HT:??175.3??cm?? WT:??78.5??kg?? BMI:??25.54?? General - NAD, alert and awake Cardiac - RRR Respiratory - non labored?? Abdomen - soft, mildly distended, tenderness rosa elena-incisions with band-aids c/d/i over 5 lap port sites Neuro - alert and oriented x3 ?? Future Appointments Saturday 1:00 PM EDT ?? With: Jana TRIVEDI, Onur Fink Where: [facility] General Surgery [address] [place] [address] Drive [address] [place] [address]- Status: Pending Saturday 1:40 PM EDT ?? With: Nathen Mcclain Where: [facility] [address] [place] [address]- Status: Pending Patient Discharge Condition improved Discharge Disposition home Home Health Face to Face ^HomeHealthFTF Procedures Performed This Visit Repair Hernia Hiatal with Cong Fundopl Inpatient Medications Medications (10) Active SCHEDULED: (6) Acetaminophen 325 mg Tablet (acetaminophen 325 mg oral tablet) ??975 mg, By Mouth, Every 6 hours Cyclobenzaprine 10 mg Tablet (Flexeril 10 mg oral tablet) ??10 mg, By Mouth, 3 times a day Docusate Sodium 100 mg Capsule (Colace sodium 100 mg oral capsule) ??200 mg 2 capsule, By Mouth, 2 times a day Enoxaparin 40 mg Inj (Enoxaparin Inj) ??40 mg 0.4 mL, Subcutaneous Injection, Daily Pantoprazole 40 mg Inj (Pantoprazole Inj) ??40 mg, IV Push Slowly, Daily Senna Tablet (Senna 8.6 mg oral tablet) ??17.2 mg 2 tablet, By Mouth, Daily CONTINUOUS: (0) PRN: (4) Bisacodyl 10 mg Suppository (Bisacodyl Supp) ??10 mg 1 supp, Rectally, Daily Ondansetron 2mg/mL Inj (2mL Vial) (Zofran Inj) ??4 mg, IV Push, Every 6 hours OxyCODONE 5 mg IR Tablet (oxyCODONE 5 mg oral tablet) ??5 mg, By Mouth, Every 4 hours PROCHLORperazine 5mg/ml Inj (Compazine Inj) ??5 mg 1 mL, IV Push, Every 6 hours Discharge Medications Biotin (biotin 1000 mcg oral tablet)?1?tab(s)?1,000?Microgram?By Mouth?Daily Docusate (Colace sodium 100 mg oral capsule)?100?Milligram?1?capsule?By Mouth?2 times a day?as needed?for 7?Days?for constipation Milk Thistle?1,000?Milligram?By Mouth?Daily Minoxidil Topical (minoxidil 5% topical solution)?1?mckay?Topically?2 times a day Omeprazole (omeprazole 20 mg oral enteric coated capsule)?1?capsule?20?Milligram?By Mouth?2 times a day?as needed?as needed for GERD Oxycodone (oxyCODONE 5 mg oral tablet)?5?Milligram?1?tablet?By Mouth?Every 6 hours?as needed?as needed for pain Labs Last 24 Hours BLOOD COUNT & DIFF ? Event Name?? Event Result?? Date/Time?? WBC 14.7 k/mm3??High 03/13/23 05:31:00 RBC 4.94 m/mm3 03/13/23 05:31:00 Hgb 14.3 Gm/dL 03/13/23 05:31:00 Hct 43 % 03/13/23 05:31:00 MCV 87 femtoliters 03/13/23 05:31:00 MCH 28.9 pg 03/13/23 05:31:00 MCHC 33.3 g/dL 03/13/23 05:31:00 Platelet Count 248 k/mm3 03/13/23 05:31:00 MPV 9.9 femtoliters 03/13/23 05:31:00 Nucleated RBC (Automated) 0 #/100 WBC'S 03/13/23 05:31:00 ? CHEM GENERAL ? Event Name?? Event Result?? Date/Time?? Sodium 141 mmol/L 03/13/23 05:31:00 Chloride 104 mmol/L 03/13/23 05:31:00 Bicarbonate Level 25 mmol/L 03/13/23 05:31:00 Anion Gap 12 03/13/23 05:31:00 Glucose Level 95 mg/dL 03/13/23 05:31:00 BUN 9 mg/dL 03/13/23 05:31:00 Creatinine-Blood 0.9 mg/dL 03/13/23 05:31:00 Calcium, Ionized pH Corrected 1.25 mmol/L 03/13/23 05:31:00 Phosphorus 3.5 mg/dL 03/13/23 05:31:00 Magnesium 2.1 mg/dL 03/13/23 05:31:00 ? Patient Instructions Discharge Instructions:??General??Surgery ?? [facility]??General??Surgery ? Diet: ?Post Fundoplication Diet ?Drink 6 to 8 glasses of fluids per day. ?No alcoholic beverages post-operatively or while taking pain medications. ?? Activity: ?Avoid any activity that causes discomfort. ??Normal daily activities are safe. ?Avoid straining or lifting anything more than 10??pounds for??4 weeks. ?IF you drive - After the first 24 hours, you may drive whenever comfortable, but do not go alone the first time and do not drive after taking pain medications. ?? Dressings and Wound care: ?You may remove your bandage (if you have one in place) in 48 hours and shower (no soaking in a tub, pool, or hot tub.) ??If you have steri-strips, misael, or sutures, it???s okay if they happen to get wet, but be sure to pat dry with a clean towel as soon as you get out. ?It is very important to keep your incision area clean and dry. ??You may cover up the incisionswith a bandage for protection, but once the incisions are dried/ scabbed over, you may leave them open to air. ??Steri-strips will start curling up and drying??out over several days. ??They may startto drop off by themselves, and this is all right. ? Medications: ?Pain: ??Oxycodone is usually prescribed.?If the pain you are experiencing is mild, extra-strength Tylenol will likely take care of it. ??Remember that narcotic pain medications can cause constipation. ??Some narcotics contain Tylenol (acetaminophen) and if additional pain medicines are required, do not take additional Tylenol products- use ibuprofen or naproxen instead. ??Take a stool softener as prescribed below and drink plenty of fluids.?Home Medications: Resume any medications your primary physician has prescribed unless specifically instructed. ?Antibiotics:??If one is prescribed for you, be sure to take it until there are no more pills left.?Stool softener: ??Colace 100 mg or its generic form??DOCUSATE tablet??by mouth twice a day as directed.??Some??people will need to take stool softener??short-term after??surgery. If you have chronic diarrhea or inflammatory bowel disease, you should not take stool softener unless you are constipated ? Expect the following: ?Pain or discomfort, which will lessen as time passes. ??If your surgery was done laparoscopically, you could have abdominal, shoulder, or collarbone pain. This will disappear gradually over several days. ?Constipation is a possibility, especially if narcotic pain relievers are needed. ?? Call the office or answering service immediately if any of the following occur: ?Severe pain not relieved by pain medication. ?Uncontrollable bleeding/ bleeding that saturates your dressing. ?Any bright redness, red streaking, or swelling around your incision, or any bad odor, or pus-like drainage coming from your incision. ?Temperature more than??101 F (38 C). ?Repeated nausea and vomiting or inability to tolerate or hold down fluids ?Inability to urinate. ?? Post-operative appointments: ?If you have not already scheduled your follow-up appointment, call . You should arrange to be seen in 2-3 weeks after surgery. ??Ask regarding exact timing of follow-up. ?A nurse visit might also??be schedule for??1??week after for staple/suture removal or wound check.? Problems or Questions: ?Office hours are 8:30 am to 5:00 pm Saturday thru Saturday. ?If you have an after-hours emergency, you can call the answering service at . ?If you cannot reach our office and your problem truly requires emergency attention, go to??[facility] Emergency Room??or the nearest emergency room. * Damaris Rascon RN: PERFORM Event Display: Patient Education/Instruction Authored Date: [id number] Inpatient Adult Discharge Instructions [place] [id number] Name: HUMBERTO ROYCE : 1965 Visit: 03/12/2023 15:45:00 Current Date: 03/13/2023 11:53 Account: [id number] Inpatient Adult Discharge Instructions We would like to thank you for allowing us to assist you with your healthcare needs. The following includes patient education materials and information regarding your injury/illness. Our entire staffstrives to provide an excellent experience for our patients and their families. PLEASE ENSURE YOU FOLLOW-UP PER THE INSTRUCTIONS BELOW! ?? YOUR OPINION IS IMPORTANT TO US! Please complete the survey you may receive by mail or email. Your feedback will be used to make improvements to the healthcare experiences of our patients and their families. Surveys are administered by [employer] ?? If further treatment with your primary care physician or another doctor is recommended, it is important for you to keep the appointment. Call your primary care physician or return to the Emergency Department immediately if your condition worsens, fails to improve, or new symptoms develop. If you need to find a doctor, you can call [facility] [employer] for a referral at [phone] or toll free at [phone] ([phone]) or log in to [email or web address].. ?? You can view and manage your care through the patient portal or by using a health care mckay of your choosing. [employer] is a website that allows you to securely view your medical information including your hospital discharge summary, office visit summaries, medications and follow-up visits. You can also request appointments, renew medications, and request access to your medical information using a health care mckay of your choosing, or just ask a question. You can enroll at [email or web address] or register during your next office visit. You have been discharged from [facility], Patient Care Unit: S1. If you have any questions regarding these instructions after you leave, please call us and we will be happy to assist you. [facility] Your Care Team Attending Physician Jana TRIVEDI, Onur Fink Discharging Providers Bebo Simpson MD Reason for Admission HIATAL HERNIAOVN 23HR [facility] INPR OR Your Diagnosis GERD (gastroesophageal reflux disease) Tests Performed Below is a partial list of the tests performed during your hospitalization. You may have had other tests and procedures not included in this list. Please discuss all test results with your provider. BUN Calcium Ionized CBC w/ Differential Creatinine Electrolytes Glucose Level Magnesium Level Phosphorus Level Primary Care Provider Ming Martin MD Advance Directive Health Care Proxy on File Yes - Health Care Proxy Discharge Vitals Temperature: 97.2 DegF Height: 175.3 cm Pulse Rate: 86 bpm Weight: 78.5 kg Respiratory Rate: 16 br/min Body Mass Index:??25.54 kg/m2??High Systolic Blood Pressure: 121 mm Hg Body surface area: 1.96 Diastolic Blood Pressure: 74 mm Hg ?? Oxygen Saturation: 98 % ?? Studies Pending All tests and labs ordered during this hospital stay have been completed unless listed below. Please discuss all pending results with your provider listed above in these instructions. ?? BUN CBC w/ Differential Creatinine Electrolytes Glucose Level Ionized Calcium (Calcium Ionized) Magnesium Level Phosphorus Level What to do next Instructions From Your Doctor Discharge Instructions:??General??Surgery ?? [facility]??General??Surgery ? Diet: ?Post Fundoplication Diet ?Drink 6 to 8 glasses of fluids per day. ?No alcoholic beverages post-operatively or while taking pain medications. ?? Activity: ?Avoid any activity that causes discomfort. ??Normal daily activities are safe. ?Avoid straining or lifting anything more than 10??pounds for??4 weeks. ?IF you drive - After the first 24 hours, you may drive whenever comfortable, but do not go alone the first time and do not drive after taking pain medications. ?? Dressings and Wound care: ?You may remove your bandage (if you have one in place) in 48 hours and shower (no soaking in a tub, pool, or hot tub.) ??If you have steri-strips, misael, or sutures, it???s okay if they happen to get wet, but be sure to pat dry with a clean towel as soon as you get out. ?It is very important to keep your incision area clean and dry. ??You may cover up the incisionswith a bandage for protection, but once the incisions are dried/ scabbed over, you may leave them open to air. ??Steri-strips will start curling up and drying??out over several days. ??They may startto drop off by themselves, and this is all right. ? Medications: ?Pain: ??Oxycodone is usually prescribed.?If the pain you are experiencing is mild, extra-strength Tylenol will likely take care of it. ??Remember that narcotic pain medications can cause constipation. ??Some narcotics contain Tylenol (acetaminophen) and if additional pain medicines are required, do not take additional Tylenol products- use ibuprofen or naproxen instead. ??Take a stool softener as prescribed below and drink plenty of fluids.?Home Medications: Resume any medications your primary physician has prescribed unless specifically instructed. ?Antibiotics:??If one is prescribed for you, be sure to take it until there are no more pills left.?Stool softener: ??Colace 100 mg or its generic form??DOCUSATE tablet??by mouth twice a day as directed.??Some??people will need to take stool softener??short-term after??surgery. If you have chronic diarrhea or inflammatory bowel disease, you should not take stool softener unless you are constipated ? Expect the following: ?Pain or discomfort, which will lessen as time passes. ??If your surgery was done laparoscopically, you could have abdominal, shoulder, or collarbone pain. This will disappear gradually over several days. ?Constipation is a possibility, especially if narcotic pain relievers are needed. ?? Call the office or answering service immediately if any of the following occur: ?Severe pain not relieved by pain medication. ?Uncontrollable bleeding/ bleeding that saturates your dressing. ?Any bright redness, red streaking, or swelling around your incision, or any bad odor, or pus-like drainage coming from your incision. ?Temperature more than??101 F (38 C). ?Repeated nausea and vomiting or inability to tolerate or hold down fluids ?Inability to urinate. ?? Post-operative appointments: ?If you have not already scheduled your follow-up appointment, call . You should arrange to be seen in 2-3 weeks after surgery. ??Ask regarding exact timing of follow-up. ?A nurse visit might also??be schedule for??1??week after for staple/suture removal or wound check.? Problems or Questions: ?Office hours are 8:30 am to 5:00 pm Saturday thru Saturday. ?If you have an after-hours emergency, you can call the answering service at . ?If you cannot reach our office and your problem truly requires emergency attention, go to??[facility] Emergency Room??or the nearest emergency room. Discharge Orders Scheduled Follow-Up Appointments Saturday 1:00 PM EDT ?? With: Onur Bates MD Where: [facility] General Surgery [address] [place] [address] Drive [address] [place] [address]- Status: Pending Saturday 1:40 PM EDT ?? With: Nathen Mcclain Where: [facility] [address] [place] [address]- Status: Pending Discharge Medications HUMBERTO CRANE :1965 Visit Date:03/12/2023 Medications: Please continue your medications until treatment is completed or stopped by your provider. Medications not listed below should be discontinued. Discuss any questions related to medications with your provider. What How Much When Instructions Next Dose New Docusate (Colace sodium 100 mg oral capsule) 1 capsule Oral Twice a day as needed for for constipation Duration: 7 Days Pickup at [facility] #[id number] as needed New Oxycodone (oxyCODONE 5 mg oral tablet) 1 tab(s) Oral Every 6 hours as needed for as needed for pain Pickup at [facility] #[id number] as needed Unchanged Biotin (biotin 1000 mcg oral tablet) 1 tab(s) Oral Daily tomorrow Unchanged Milk Thistle 1,000 Milligram Oral Daily tomorrow Unchanged Minoxidil Topical (minoxidil 5% topical solution) 1 mckay Topically Twice a day tonight Unchanged Omeprazole (omeprazole 20 mg oral enteric coated capsule) 1 capsule Oral Twice a day as needed for as needed for GERD as needed Pharmacy Information [facility]/pharmacy #[id number]: [address] [place], [place] [id number] [phone] Test Results Below is a partial list of the most recent Laboratory test results done prior to this discharge. You may have had other tests and procedures not included in this list. Please discuss all test resultswith your provider. Est Creatinine Clearance - 91.70 mL/min (03/13/2023) BUN (03/13/2023) ???BUN - 9 mg/dL Calcium Ionized (03/13/2023) ???Calcium, Ionized pH Corrected - 1.25 mmol/L CBC w/ Differential (03/13/2023) ???WBC - 14.7 k/mm3???RBC - 4.94 m/mm3???Hgb - 14.3 Gm/dL???Hct - 43.0 %???MCV - 87.0 femtoliters???MCH - 28.9 pg???MCHC - 33.3 g/dL???Platelet Count - 248 k/mm3???RDW-SD - 39.0 femtoliters???MPV - 9.9 femtoliters???Nucleated RBC (Automated) - 0.0 #/100 WBC'S???Abs. NRBC - 0.0 k/mm3???Abs. Neut - 11.8 k/mm3???Abs. Lymph - 1.5 k/mm3???Abs. Hale - 1.3 k/mm3???Abs. Eo - 0.0 k/mm3???Abs. Baso - 0.0 k/mm3???Neut % - 80.4 %???Lymph % - 10.1 %???Hale % - 8.9 %???Eos % - 0.0 %???Baso % - 0.3 %???Imm Gran - 0.3 %???Abs. Imm Gran - 0.1 k/mm3 Creatinine (03/13/2023) ???Creatinine-Blood - 0.9 mg/dL???Estimated GFR Creatinine - 102 ML/MIN/1.73 M2 Electrolytes (03/13/2023) ???Sodium - 141 mmol/L???Potassium - 4.1 mmol/L???Chloride - 104 mmol/L???Bicarbonate Level - 25 mmol/L???Anion Gap - 12 Glucose Level (03/13/2023) ???Glucose Level - 95 mg/dL Magnesium Level (03/13/2023) ???Magnesium - 2.1 mg/dL Phosphorus Level (03/13/2023) ???Phosphorus - 3.5 mg/dL Allergies (NKA means No Known Allergies) Shrimp??(lip swelling) Problems No qualifying data available Education Materials Below is the list of Educational Leaflet Providered with your Discharge Instructions. Valuables and Belongings I fully understand and agree that [facility] accepts no responsibility for all my personal property including clothing, toilet articles, radios, jewelry, dentures, hearing aids, rings, money, or any other property that is in my possession or is brought to me after admission. I understand certain valuables may be placed in a hospital safe for a short period of time. I understand that the hospital is not liable for loss or damage due to accident, fire, or other natural occurrence while said property is in the safe. I accept full responsibility for any personal property that I keep with me, and will not hold the hospital responsible in case of loss or disappearance. I acknowledge that i have been encouraged to send valuables and belongings home. ?? Review of Valuable and Belonging List: With patient Possessions released to: PACU Date for Pt to Sign Valuables/Belongings: 03/12/23 21:17:00 ?? Other Discharge Information ? Pulmonary Rehab Status?? Pulmonary Rehab Discharge Status?? Respiratory Rate: 16 br/min ? Common Emergency Awareness Tips IS IT A STROKE? Act FAST and Check for these signs: FACE Does the face look uneven? ARM Does one arm drift down? SPEECH Does their speech sound strange? TIME Call at any sign of stroke ?? Heart Attack Signs Chest discomfort: Most heart attacks involve discomfort in the center of the chest and lasts more than a few minutes, or goes away and comes back. It can feel like uncomfortable pressure, squeezing, fullness or pain. Discomfort in upper body: Symptoms can include pain or discomfort in one or both arms, back, neck, jaw or stomach. Shortness of breath: With or without discomfort. Other signs: Breaking out in a cold sweat, nausea, or lightheaded. Remember, MINUTES DO MATTER. If you experience any of these heart attack warning signs, call to get immediate medical attention! ?? Smoking can increase your chances of developing chronic health problems and can cause harmful effects to other family members in your house. If you smoke, you are strongly encouraged to quit. Please call [employer] at [phone] or 3-131-672-WCTQZR ([phone]) or log in to [email or web address] for referrals to smoking cessation programs. ?? 988 Suicide & Crisis Lifeline is available 08/04 if you or someone you know needs to find a reason to keep living. By calling 988 you'll be connected to a skilled, trained counselor at a crisis center in your area. INPATIENT DISCHARGE INSTRUCTIONS SIGNATURE PAGE HUMBERTO CRANE [facility]:[id number] Location:[facility] Registration Date and Time:03/12/2023 15:45 EDT Primary Care Physician: Ming Martin MD, Attending Physician: Onur Bates MD, I HUMBERTO CRANE, have received the above patient education materials/instructions and have verbalized understanding. If ambulance or transport services are being used I further acknowledge being given a choice of service. ?? If you need to contact me, please call me at this number: . Patient/Blow Mold Machine Operator Name: Patient/Blow Mold Machine Operator Signature: Relationship to Patient: Witness Name/Signature: Date: Patient Care team information Care Team Personnel Name: Ming Martin MD Position: Reference Physician Member Role: PCP Address: Address: [facility] [place] [address]- Care Team Related Persons Name: MARIA CHANDRA Address: home [address] [place] [address]
--- OUTSIDE RECORDS SUMMARY | 2024-08-08 09:13 | XMS_ITS | Continuity of Care Document ---
Author Organization [facility] Address Unknown Care Team Providers Care Pocket Flap Creasing Machine Operator Name Role Phone Po Ming TRIVEDI Primary Care Physician Encounter [facility] [place] Date(s): 06/13/21 - 09/15/21 [facility] Attending Physician: Onur Bates MD Referring Physician: Jalen Sanz MD
--- OUTSIDE RECORDS SUMMARY | 2024-08-08 09:13 | XMS_ITS | Continuity of Care Document ---
Author Organization [facility] Address [address] [place] [address] [address] [place] [address]- Care Team Providers Care Lead Programmer Name Role Phone Ming Martin MD Primary Care Physician Encounter [facility] [place] Date(s): 02/20/22 - 05/18/[address] [place] [address]- [place] Attending Physician: Onur Bates MD Allergies, Adverse Reactions, Alerts Substance Reaction Severity Status Shrimp Persistent Moderate Active Medications omeprazole 20 mg oral enteric coated capsule 1 capsule = 20 mg, By Mouth, 2 times a day, # 180 capsule, 4 Refills, Maintenance, 12/20/21 11:40:00 EDT, EC Capsule, [facility] #[id number], Partial fill upon patient request if the prescription is for a schedule II opioid drug. Start Date: 12/20/21 Status: Ordered PEG-3350 with Electrolytes (Eqv-NuLYTELY) oral powder for reconstitution 240 mL, By Mouth, Every 10 minutes, # 4,000 mL, 0 Refills, Maintenance, 12/20/21 8:38:00 EDT, [facility] #[id number], Partial fill upon patient request if the prescription is for a schedule II opioid drug., 240 mL By Mouth Every 10 minutes Start Date: 12/20/21 Status: Ordered Care Team Personnel Name: Ming Martin MD Address: [address] [place] [address]-
--- OUTSIDE RECORDS SUMMARY | 2024-08-08 09:13 | XMS_ITS | Continuity of Care Document ---
Author Organization [facility] Address Unknown Care Team Providers Care Triage Register Nurse Name Role Phone Po Ming TRIVEDI Primary Care Physician [phone] Encounter [facility] Date(s): 08/16/21 - 09/15/21 [facility] Attending Physician: Ignacio Dela Cruz Admitting Physician: Ignacio Dela Cruz Referring Physician: Ignacio Dela Cruz
--- OUTSIDE RECORDS SUMMARY | 2024-08-08 09:13 | XMS_ITS | Continuity of Care Document ---
Author Organization [facility] Address [address] [place] [address] [address] [place] [address]- Care Team Providers Care Plant General Manager Name Role Phone Ming Martin MD Primary Care Physician [phone] [place] [facility] Date(s): 11/16/22 - 02/16/[address] [place] [address]- [place] Attending Physician: Jana TRIVEDI, Onur Fink Allergies, Adverse Reactions, Alerts Substance Reaction Severity Status Shrimp Persistent Moderate Active Medications omeprazole 20 mg oral enteric coated capsule 1 capsule = 20 mg, By Mouth, 2 times a day, # 180 capsule, 4 Refills, Maintenance, 12/20/21 11:40:00 EDT, EC Capsule, [facility] #[id number], Partial fill upon patient request if the prescription is for a schedule II opioid drug. Start Date: 12/20/21 Status: Ordered PEG-3350 with Electrolytes (Eqv-NuLYTELY) oral powder for reconstitution 240 mL, By Mouth, Every 10 minutes, # 4,000 mL, 0 Refills, Maintenance, 12/20/21 8:38:00 EDT, [facility] #[id number], Partial fill upon patient request if the [...] Reference Physician Member Role: PCP Address: Address: [address] [place] [address]- Care Team Related Persons Name: CHANDRA, MARIA Address: home [address] [place], [place] [address]
--- OUTSIDE RECORDS SUMMARY | 2024-08-08 09:13 | XMS_ITS | Continuity of Care Document ---
Author Organization [facility] Address [address] [place] [address] D[address] [place] [address]- Care Team Providers Care Passenger Brakeman Name Role Phone Ming Martin MD Primary Care Physician [place] [facility] [place] Date(s): 03/27/23 - 04/03/[address] [place] [address]- Encounter Diagnosis Dysphagia(Discharge Diagnosis) - 03/27/23 Pelvic pain in male(Discharge Diagnosis) - 03/27/23 Attending Physician: Onur Bates MD Referring Physician: [...] 03/13/23 8:39:00 EDT, Route to Pharmacy Electronically, [facility]/pharmacy #[id number], Partial fill upon patient request if the prescription... Start Date: 03/13/23 Stop Date: 03/20/23 Status: Ordered Colace sodium 100 mg oral capsule 100 mg, 1, capsule, By Mouth, 2 times a day, PRN, # 60 capsule, Refills 0, Tot. Refills 0, Maintenance, for constipation, 03/27/23 13:37:00 EDT, Route to Pharmacy Electronically, [facility]/pharmacy #[id number], Partial fill upon patient request if the [...] opioid drug. Start Date: 03/08/23 Status: Ordered Problem List Diagnosis Diagnosis Type Effective Dates Health Status Cl inical Service Informant Dysphagia Discharge Diagnosis 03/27/23 Pelvic pain in male Discharge Diagnosis 03/27/23 Vital Signs Most recent to oldest [Reference Range]: 1 Height 175.3 cm (03/27/23 12:55 PM) Weight 73.8 kg (03/27/23 12:55 PM) Pulse Rate [55-90 bpm] 74 bpm (03/27/23 12:55 PM) Body Mass Index [18.5-24.99 kg/m2] 24.02 kg/m2 (03/27/23 12:55 PM) Blood Pressure [90-138/55-84 mm Hg] 123/ 72mm Hg (03/27/23 12:55 PM) Respiratory Rate [16-30 br/min] 16 br/mi n (03/27/23 12:55 PM) Temperature [96.8-100.4 DegF] 96.9 DegF (03/27/23 12:55 PM) Blood pressure sites Arm, left (03/27/23 12:55 PM) Temperature Route Temporal (03/27/23 12:55 PM) Weight Obtained Via Standing scale (03/27/23 12:55 PM) Social History Social History Type Response Smoking Status Never (less than 100 in lifetime) entered on: 11/07/22 Sex Patient Care team information Care Team Personnel Name: Ming Martin MD Position: Reference Physician Member Role: PCP Address: Address: [address] [place] [address]- Care Team Related Persons Name: MARIA CHANDRA Address: home [address] [place] [address]
--- OUTSIDE RECORDS SUMMARY | 2024-08-08 09:13 | XMS_ITS | Continuity of Care Document ---
Author Organization [facility] Address [address] [place] [address]- Care Team Providers Care Automatic Screwmaker Name Role Phone Po Ming TRIVEDI Primary Care Physician Encounter [facility] [place] Date(s): 01/29/22 - 02/28/22 [facility] [address] [place] [address]- [place] Allergies, Adverse Reactions, Alerts Substance Reaction Severity Status Shrimp Persistent Moderate Active Medications omeprazole 20 mg oral enteric coated capsule 1 capsule = 20 mg, By Mouth, 2 times a day, # 180 capsule, 4 Refills, Maintenance, 12/20/21 11:40:00 EDT, EC Capsule, [facility] #[id number], Partial fill upon patient request if the prescription is for a schedule II opioid drug. Start Date: 12/20/21 Status: Ordered PEG-3350 with Electrolytes (Eqv-NuLYTELY) oral powder for reconstitution 240 mL, By Mouth, Every 10 minutes, # 4,000 mL, 0 Refills, Maintenance, 12/20/21 8:38:00 EDT, [facility] #[id number], Partial fill upon patient request if the prescription is for a schedule II opioid drug., 240 mL By Mouth Every 10 minutes Start Date: 12/20/21 Status: Ordered
--- OUTSIDE RECORDS SUMMARY | 2024-08-08 09:14 | XMS_ITS | Continuity of Care Document ---
Author Organization [facility] [place] Address [address] [place] [address]- Care Team Providers Care Masonry Contractor Name Role Phone Po Ming TRIVEDI Primary Care Physician Encounter [facility] Date(s): 01/16/23 - 05/09/23 [facility] [address] [place] [address]- Attending Physician: Ana Lilia Cunningham MD Allergies, Adverse Reactions, Alerts Substance Reaction [...] 03/27/23 13:37:00 EDT, Route to Pharmacy Electronically, [facility][id number], Partial fill upon patient request if [...] Reference Physician Member Role: PCP Address: Address: [address] [place] [address]- Care Team Related Persons Name: MARIA CHANDRA Address: home [address] [place] [address]
--- OUTSIDE RECORDS SUMMARY | 2024-08-08 09:14 | XMS_ITS | Continuity of Care Document ---
Author Organization [facility] Address [address] [place] [address] Dri [address] [place] [address]- Care Team Providers Care Molder Automobile Carpets Name Role Phone Po Ming TRIVEDI Primary Care Physician Encounter [facility] [place] [facility] R [id number] Date(s): 03/27/23 - 09/13/[address] [place] [address]- Attending Physician: Onur Bates MD Allergies, Adverse [...] 8:39:00 EDT, Route to Pharmacy Electronically, [facility]/pharmacy #[id number], Partial fill upon patient request if the prescription... Start Date: 03/13/23 Stop Date: 03/20/23 Status: Ordered Colace sodium 100 mg oral capsule 100 mg, 1, capsule, By Mouth, 2 times a day, PRN, # 60 capsule, Refills 0, Tot. Refills 0, Maintenance, for constipation, 03/27/23 13:37:00 EDT, Route to Pharmacy Electronically, [facility]/pharmacy #[id number], Partial fill upon patient request if the [...] Physician Member Role: PCP Address: Address: [address] [place] [address]- Care Team Related Persons Name: MARIA CHANDRA Address: home [address] [place] [address]
--- OUTSIDE RECORDS SUMMARY | 2024-08-08 09:14 | XMS_ITS | Continuity of Care Document ---
Author Organization [facility] Address [address] [place] [address] [address] [place] [address]- Care Team Providers Care Pilot Can Router Name Role Phone Ming Martin MD Primary Care Physician [place] [facility] [place] - 07/20/[address] [place] [address]- [place] Attending Physician: Ignacio Dela Cruz Admitting Physician: AdmIgnacio richard Referring Physician: Ignacio Dela Cruz Allergies, Adverse Reactions, Alerts Substance Reaction Severity Status Shrimp Persistent Moderate Active Medications omeprazole 20 mg oral enteric coated capsule 1 capsule = 20 mg, By Mouth, 2 times a day, # 180 capsule, 4 Refills, Maintenance, 12/20/21 11:40:00 EDT, EC Capsule, [facility] #[id number], Partial fill upon patient request if the prescription is for a schedule II opioid drug. Start Date: 12/20/21 Status: Ordered PEG-3350 with Electrolytes (Eqv-NuLYTELY) oral powder for reconstitution 240 mL, By Mouth, Every 10 minutes, # 4,000 mL, 0 Refills, Maintenance, 12/20/21 8:38:00 EDT, [facility] #[id number], Partial fill upon patient request if the prescription is for a schedule II opioid drug., 240 mL By Mouth Every 10 minutes Start Date: 12/20/21 Status: Ordered Patient Care team information Personnel Name: Ming Martin MD Address: Address: [address] [place] [address]-
--- OUTSIDE RECORDS SUMMARY | 2024-08-08 09:14 | XMS_ITS | Continuity of Care Document ---
Author Organization [facility] Address Unknown Care Team Providers Care Solar Photovoltaic Installer Name Role Phone Po Ming TRIVEDI Primary Care Physician Encounter [facility] Date(s): 08/08/21 - 09/07/21 [facility]
--- OUTSIDE RECORDS SUMMARY | 2024-08-08 09:14 | XMS_ITS | Continuity of Care Document ---
Author Organization [facility] Address [address] [place] [address] [address] [place] [address]- Care Team Providers Care Deputy Commissioner Name Role Phone Po Ming TRIVEDI Primary Care Physician Encounter [facility] Date(s): 03/14/23 - 04/13/[address] [place] [address]- Allergies, Adverse Reactions, Alerts Substance Reaction Severity [...] 03/13/23 8:39:00 EDT, Route to Pharmacy Electronically, [facility]/pharmacy #[id number], Partial fill upon patient request [...] Physician Member Role: PCP Address: Address: [address] [place] [address]- Care Team Related Persons Name: MARIA CHANDRA Address: home [address] [place] [address]
--- OUTSIDE RECORDS SUMMARY | 2024-08-08 09:14 | XMS_ITS | Continuity of Care Document ---
Author Organization [facility] Address [address] [place] [address] [address] [place] [address]- Care Team Providers Care Hopper Feeder Name Role Phone Po Ming TRIVEDI Primary Care Physician [phone] Encounter [facility] Date(s): 03/14/23 - 04/13/[address] [place] [address]- Allergies, Adverse Reactions, Alerts Substance Reaction Severity [...] 03/13/23 8:39:00 EDT, Route to Pharmacy Electronically, [facility]/pharmacy #[id number], Partial fill upon patient request if the prescription... Start Date: 03/13/23 Stop Date: 03/20/23 Status: Ordered Colace sodium 100 mg oral capsule 100 mg, 1, capsule, By Mouth, 2 times a day, PRN, # 60 capsule, Refills 0, Tot. Refills 0, Maintenance, for constipation, 03/27/23 13:37:00 EDT, Route to Pharmacy Electronically, [facility]/pharmacy #[id number], Partial fill upon patient request if [...] Physician Member Role: PCP Address: Address: [address] [place] [address]- Care Team Related Persons Name: MARIA CHANDRA Address: home [address] [address]
--- OUTSIDE RECORDS SUMMARY | 2024-08-08 09:14 | XMS_ITS | Continuity of Care Document ---
Author Organization [facility] [place] Address [address] [place] [address]- Care Team Providers Care Fishing Gear Mechanic Name Role Phone Po Ming TRIVEID Primary Care Physician Encounter [facility] [id number] Date(s): 03/25/24 - 04/24/24 [facility] [place] [address] [place], [place] [address] Attending Physician: Ignacio Dela Cruz Admitting Physician: Ignacio Dela Cruz Referring Physician: AdmtrIgnacio Allergies, Adverse Reactions, Alerts Substance Reaction Severity [...] 03/13/23 8:39:00 EDT, Route to Pharmacy Electronically, [facility]/pharmacy #[id number], Partial fill upon patient request if the prescription... Start Date: 03/13/23 Stop Date: 03/20/23 Status: Ordered Colace sodium 100 mg oral capsule 100 mg, 1, capsule, By Mouth, 2 times a day, PRN, # 60 capsule, Refills 0, Tot. Refills 0, Maintenance, for constipation, 03/27/23 13:37:00 EDT, Route to Pharmacy Electronically, [facility]/pharmacy #[id number], Partial fill upon patient request [...] Reference Physician Member Role: PCP Address: Address: [address] [place] [address]- Care Team Related Persons Name: MARIA CHANDRA Address: home [address] [place] [address]
--- OUTSIDE RECORDS SUMMARY | 2024-08-08 09:14 | XMS_ITS | Continuity of Care Document ---
Author Organization [facility] Address [address] [place] [address]- Care Team Providers Care Senior Data Scientist Name Role Phone Po Ming TRIVEDI Primary Care Physician [place] [facility] [place] - 03/15/[address] [address]- Discharge Disposition: A-D/C Walkout Attending Physician: Not on Staff, Attending MD Admitting Physician: Not on Staff, Admitting MD Referring Physician: Not on Staff, Referring MD Allergies, Adverse Reactions, Alerts Substance Reaction [...] 03/13/23 8:39:00 EDT, Route to Pharmacy Electronically, [facility]/pharmacy #[id number], Partial fill upon patient request if the [...] 03/13/23 8:38:00 EDT, Route to Pharmacy Electronically, [facility]/pharmacy #[id number], Partial fill upon patient request if the... Start Date: 03/13/23 Stop Date: 03/17/23 Status: Ordered Vital Signs Most recent to oldest [Reference Range]: 1 2 3 Oxygen Saturation [94-100 %] 99 % (03/14/23 11:52 PM) 99 % (03/14/23 10:28 PM) 100 % (03/14/23 9:36 PM) Pulse Rate [55-90 bpm] 84 bpm (03/14/23 11:52 PM) 76 bpm (03/14/23 10:28 PM) 86 bpm (03/14/23 9:36 PM) Blood Pressure [90-138/55-84 mm Hg] 150/92mm Hg *H* (03/14/23 11:52 PM) 132/86mm Hg (03/14/23 10:28 PM) 141/90mm Hg *H* (03/14/23 9:36 PM) Respiratory Rate [16-30 br/min] 16 br/min (03/14/23 5:51 PM) Temperature [96.8-100.4 DegF] 98 DegF (03/14/23 10:28 PM) 98.2 DegF (03/14/23 9:36 PM) 98.8 DegF (03/14/23 6:48 PM) Mode of Delivery (Oxygen) Room air (03/14/23 11:52 PM) Room air (03/14/23 10:28 PM) Room air (03/14/23 9:36 PM) Blood pressure sites Arm, left (03/14/23 11:52 PM) Arm, left (03/14/23 10:28 PM) Arm, left (03/14/23 9:36 PM) Temperature Route Oral (03/14/23 10:28 PM) Oral (03/14/23 9:36 PM) Oral (03/14/23 6:48 PM) Social History Social History Type Response Smoking Status Never (less than 100 in lifetime) entered on: 11/07/22 Sex Patient Care team information Care Team Personnel Name: Ming Martin MD Position: Reference Physician Member Role: PCP Address: Address: [address] [place] [address]- Care Team Related Persons Name: MARIA CHANDRA Address: home [address] [place] [address]
--- OUTSIDE RECORDS SUMMARY | 2024-08-08 09:14 | XMS_ITS | Continuity of Care Document ---
Author Organization [facility] [place] Address [address] [place] [address]- Care Team Providers Care Lens Assorter Name Role Phone Po Ming TRIVEDI Primary Care Physician [phone] Encounter [facility] Date(s): 12/27/23 - 01/26/24 [facility] [address], [place] [address] Allergies, Adverse Reactions, Alerts Substance Reaction Severity [...] 03/13/23 8:39:00 EDT, Route to Pharmacy Electronically, [facility]/pharmacy #[id number], Partial fill upon patient request if the prescription... Start Date: 03/13/23 Stop Date: 03/20/23 Status: Ordered Colace sodium 100 mg oral capsule 100 mg, 1, capsule, By Mouth, 2 times a day, PRN, # 60 capsule, Refills 0, Tot. Refills 0, Maintenance, for constipation, 03/27/23 13:37:00 EDT, Route to Pharmacy Electronically, [facility]/pharmacy #[id number], Partial fill upon patient request if [...] Physician Member Role: PCP Address: Address: [address] [place] [id number]- Care Team Related Persons Name: MARIA CHANDRA Address: home [address] [place] [address]
--- OUTSIDE RECORDS SUMMARY | 2024-08-08 09:14 | XMS_ITS | Continuity of Care Document ---
Author Organization [facility] Address [address] [place] [address] [address] [place] [address]- Care Team Providers Care Moth Proofer Name Role Phone Po Ming TRIVEDI Primary Care Physician Encounter [facility] [place] Date(s): 02/28/23 - 03/30/[address] [place] [address]- Allergies, Adverse Reactions, Alerts Substance Reaction Severity [...] 03/13/23 8:39:00 EDT, Route to Pharmacy Electronically, [facility]/pharmacy #[id number], Partial fill upon patient request [...] Physician Member Role: PCP Address: Address: [address] [place] [address]- Care Team Related Persons Name: MARIA CHANDRA Address: home [address] [place] [address]
--- OUTSIDE RECORDS SUMMARY | 2024-08-08 09:14 | XMS_ITS | Continuity of Care Document ---
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 Name Role Phone Ming Martin MD Primary Care Physician En[place] [facility] [place] Date(s): 02/14/22 - 02/14/[address] [address] Discharge Disposition: A-D/C Home Attending Physician: Napoleon Mares MD Admitting Physician: Napoleon Mares MD Referring Physician: Napoleon Mares MD Allergies, Adverse Reactions, Alerts Substance Reaction Severity Status Shrimp Persistent Moderate Active Medications omeprazole 20 mg oral enteric coated capsule 1 capsule = 20 mg, By Mouth, 2 times a day, # 180 capsule, 4 Refills, Maintenance, 12/20/21 11:40:00 EDT, EC Capsule, [facility] #[id number], Partial fill upon patient request if the prescription is for a schedule II opioid drug. Start Date: 12/20/21 Status: Ordered PEG-3350 with Electrolytes (Eqv-NuLYTELY) oral powder for reconstitution 240 mL, By Mouth, Every 10 minutes, # 4,000 mL, 0 Refills, Maintenance, 12/20/21 8:38:00 EDT, [facility] #[id number], Partial fill upon patient request if the prescription is for a schedule II opioid drug., 240 mL By Mouth Every 10 minutes Start Date: 12/20/21 Status: Ordered Procedures Procedure Date Related Diagnosis Body Site Status Colonoscopy, flexible; diagn ostic, including collection of specimen(s) by brushing or washing, when performed (separate procedure) 02/14/22 Completed Esophagus, gastroesophageal reflux test; with mucosal attached telemetry pH electrode placement, recording, analysis and interpretation 02/14/22 Completed Vital Signs Most recent to oldest [Reference Range]: 1 2 3 Height 180 cm (02/14/22 2:21 PM) Oxygen Saturation [94-100 %] 100 % (02/14/22 4:34 PM) 100 % (02/14/22 4:20 PM) 100 % (02/14/22 2:21 PM) Pulse Rate [55-90 bpm] 62 bpm (02/14/22 2:21 PM) Blood Pressure [90-138/55-84 mm Hg] 110/74mm Hg (02/14/22 4:34 PM) 109/60mm Hg (02/14/22 4:20 PM) 127/65mm Hg (02/14/22 2:21 PM) Respiratory Rate [16-30 br/min] 15 br/min *L* (02/14/22 4:20 PM) 16 br/min (02/14/22 2:21 PM) Temperature [96.8-100.4 DegF] 97.5 DegF (02/14/22 2:21 PM) Mode of Delivery (Oxygen) Room air (02/14/22 4:34 PM) Room air (02/14/22 4:20 PM) Room air (02/14/22 2:21 PM) Blood pressure sites Arm, left (02/14/22 4:34 PM) Arm, left (02/14/22 4:20 PM) Arm, left (02/14/22 2:21 PM) Temperature Route Temporal (02/14/22 2:21 PM) Dry Weight 73 kg (02/14/22 2:21 PM)
--- OUTSIDE RECORDS SUMMARY | 2024-08-08 09:14 | XMS_ITS | Continuity of Care Document ---
Author Organization [facility] Address Unknown Care Team Providers Care Sulky Driver Name Role Phone Po Ming TRIVEDI Primary Care Physician [phone] [place] [facility] [place] 12[place]20[place]21 - 01/19/22 [facility] Medications omeprazole 20 mg oral enteric coated capsule 1 capsule = 20 mg, By Mouth, 2 times a day, # 180 capsule, 4 Refills, Maintenance, 12/20/21 11:40:00 EDT, EC Capsule, [facility] #[id number], Partial fill upon patient request if the prescription is for a schedule II opioid drug. Start Date: 12/20/21 Status: Ordered PEG-3350 with Electrolytes (Eqv-NuLYTELY) oral powder for reconstitution 240 mL, By Mouth, Every 10 minutes, # 4,000 mL, 0 Refills, Maintenance, 12/20/21 8:38:00 EDT, [facility] #[id number], Partial fill upon patient request if the prescription is for a schedule II opioid drug., 240 mL By Mouth Every 10 minutes Start Date: 12/20/21 Status: Ordered
--- OUTSIDE RECORDS SUMMARY | 2024-08-08 09:14 | XMS_ITS | Continuity of Care Document ---
Author Organization [facility] Address [address] [place] [address] [address] [place] [address]- Care Team Providers Care Digital Ad Trafficker Name Role Phone Ming Martin MD Primary Care Physician [place] [facility] [place] - 12/21/[address] [place] [address]- [place] Allergies, Adverse Reactions, Alerts Substance Reaction Severity Status Shrimp Persistent Moderate Active Medications omeprazole 20 mg oral enteric coated capsule 1 capsule = 20 mg, By Mouth, 2 times a day, # 180 capsule, 4 Refills, Maintenance, 12/20/21 11:40:00 EDT, EC Capsule, [facility] #[id number], Partial fill upon patient request if the prescription is for a schedule II opioid drug. Start Date: 12/20/21 Status: Ordered PEG-3350 with Electrolytes (Eqv-NuLYTELY) oral powder for reconstitution 240 mL, By Mouth, Every 10 minutes, # 4,000 mL, 0 Refills, Maintenance, 12/20/21 8:38:00 EDT, [facility] #[id number], Partial fill upon patient request if the [...] Reference Physician Member Role: PCP Address: Address: [address] [place] [address]- Care Team Related Persons Name: MARIA CHANDRA Address: home [address] [place] [place] [address]
--- OUTSIDE RECORDS SUMMARY | 2024-08-08 09:14 | XMS_ITS | Continuity of Care Document ---
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
--- OUTSIDE RECORDS SUMMARY | 2024-08-08 09:14 | XMS_ITS | Continuity of Care Document ---
Author Organization [facility] [place] Address [address] [place] [address]- Care Team Providers Care Associate Sales Representative Name Role Phone Po Ming TRIVEDI Primary Care Physician [phone] Encounter [facility] Date(s): 04/09/23 - 05/09/23 [facility] [place] [address] [place], [place] [address] Attending Physician: Ignacio Dela Cruz Admitting Physician: AdmtrIgnacio Referring Physician: Admtr, Ar8 Allergies, Adverse Reactions, [...] 03/13/23 8:39:00 EDT, Route to Pharmacy Electronically, [facility]/pharmacy #[id number], Partial fill upon patient request if the prescription... Start Date: 03/13/23 Stop Date: 03/20/23 Status: Ordered Colace sodium 100 mg oral capsule 100 mg, 1, capsule, By Mouth, 2 times a day, PRN, # 60 capsule, Refills 0, Tot. Refills 0, Maintenance, for constipation, 03/27/23 13:37:00 EDT, Route to Pharmacy Electronically, [facility]/pharmacy #[id number], Partial fill upon patient request if [...] Physician Member Role: PCP Address: Address: [address] [place] [address]- Care Team Related Persons Name: MARIA CHANDRA Address: home [address] [place] [address]
[2024-08-08 09:25] VITALS: BP 134/76; PULSE 69; TEMP 36.5; O2SAT 99; BMI 17.3
--- NOTE | 2024-08-08 09:25 | AM.OFFWIN_ITS ---
Intake Vital Signs 08/08/24 09:25 Height 6 ft 10 in Weight 165 lb BMI 17.3 BP 134/76 Blood Pressure Location Lt brachial Position Sitting Pulse 69 Pulse Source Pulse Oximeter Temp 97.7 F Temp Source Oral Pulse Oximetry (%) 99 Oxygen Delivery Method Room Air Intake Visit Reasons: EP Lower back pain, cloudy urine Intake Note: Pt is here today c/o lower back pain and cloudy urine Patient Tobacco Use Status: Never used Tobacco Allergies shrimp [SHRIMP] Allergy (Intermediate, Verified 08/08/24 09:27) SWELLING shellfish derived Allergy (Unknown, Verified 08/08/24 09:27) Swelling PFSH Medical History Frequency of micturition Genital herpes in men Hypercholesterolemia Fatty liver GERD (gastroesophageal reflux disease) Irritable bowel syndrome Vitamin D deficiency Lupus anticoagulant positive Migraine Surgical History History of fundoplication No pertinent past surgical history Family History Father Myocardial infarct Brother Myocardial infarct Pancreatic cancer Maternal Uncle Myocardial infarct Paternal Aunt Myocardial infarct Maternal Uncle Barretts esophagus Maternal Grandmother Brain cancer Social History Housing: Apartment Alcohol intake: current Alcohol intake frequency: holidays/special occasions only Alcohol type: hard liquor Comment: 2 x a week 4 shots one time Patient Tobacco Use Status: Never used Tobacco Years Smoked: tinture CBD e-Cigarette/Vaping Use: Never Used Second Hand Smoke Exposure: No service: No Current occupational status: disabled Cognitive needs: No Hearing needs: No Vision needs: Yes Review of Systems Const All systems reviewed & are unremarkable except as noted in HPI and below Physical Exam Vital Signs: Last Vital Signs Temp 97.7 F 08/08/24 09:25 Pulse 69 08/08/24 09:25 BP 134/76 08/08/24 09:25 Pulse Ox 99 08/08/24 09:25 Oxygen Delivery Method Room Air 08/08/24 09:25 BMI result Body Mass Index 17.3 Results AMB Urinalysis, Automated UA Leukoctes 0 Chaz/uL Last Edit by Sallie Hudson CMA on 08/08/24 09:38 UA Nitrite Negative Last Edit by Sallie Hudson, MEDICAL LABORATORY SCIENTIST on 08/08/24 09:38 UA Urobilinogen 0.2 mg/dL Last Edit by Sallie Hudson CMA on 08/08/24 09:38 UA Protein 0 mg/dL Last Edit by Sallie Hudson, SWETHA on 08/08/24 09:38 UA pH 6.0 Last Edit by Sallie Hudson, MEDICAL LABORATORY SCIENTIST on 08/08/24 09:38 UA Blood 10 Oliver/uL Last Edit by Sallie Hudson, MEDICAL LABORATORY SCIENTIST on 08/08/24 09:38 UA Specific [place] 1.030 Last Edit by Sallie Hudson, MEDICAL LABORATORY SCIENTIST on 08/08/24 09:38 UA Ketone Negative Last Edit by Sallie Hudson CMA on 08/08/24 09:38 UA Bilirubin 0 mg/dL Last Edit by Sallie Hudson, MEDICAL LABORATORY SCIENTIST on 08/08/24 09:38 UA Glucose 0 mg/dL Last Edit by Sallie Hudson, MEDICAL LABORATORY SCIENTIST on 08/08/24 09:38 Results Reviewed Results Reviewed: Laboratory Last Values Urine pH (Auto) 6.0 08/08/24 09:37 Specific [place] (Auto) 1.030 08/08/24 09:37 Urine Protein (Auto) 0 mg/dL 08/08/24 09:37 Glucose (UA)(Auto) 0 mg/dL 08/08/24 09:37 Urine Ketones (Auto) Negative 08/08/24 09:37 Urine Blood (Auto) 10 Oliver/uL 08/08/24 09:37 Urine Nitrite (Auto) Negative 08/08/24 09:37 Urine Bilirubin (Auto) 0 mg/dL 08/08/24 09:37 Urine Urobilinogen (Auto) 0.2 mg/dL 08/08/24 09:37 Leukocyte Esterase (Auto) 0 Chaz/uL 08/08/24 09:37 Assessment & Plan Assessment & Plan Orders: Orders AMB Urinalysis Automated Today Z13.9 - Encounter for screening, unspecified Medications: New sulfamethoxazole-trimethoprim 800-160 mg (Bactrim DS) 1 tab PO BID 14 tabs 0RF 7 days Coding Level of Care Code Est Pt Level 4 (44207)
== END 2024-08-08 11:26 | disposition home or self-care (01) ==
PROVIDERS: PCP Internal Medicine; Visit Provider Physician Assistant Medical
DX: Z13.9 Encounter for screening, unspecified (principal)

== ENCOUNTER → 2024-08-08 09:11 | Outpatient (BNVA) | payer BC, SELFPAY | PROVIDERS: PCP Internal Medicine; Visit Provider Physician Assistant Medical | DX: R35.0 Frequency of micturition (principal); M54.50 Low back pain, unspecified | CPT/HCPCS: 81003 ==

== ENCOUNTER 2024-09-07 14:26 | Outpatient (AMB) | payer BC, SELFPAY ==
[2024-09-07 14:27] VITALS: BP 126/72; PULSE 81; O2SAT 100; BMI 23.1
--- NOTE | 2024-09-07 14:27 | HO.NEPHOV_ITS ---
Vital Signs 09/07/24 14:27 Height 5 ft 11 in Weight 166 lb BMI 23.1 BP 126/72 Blood Pressure Location Lt brachial Position Sitting Pulse 81 Pulse Source Pulse Oximeter Pulse Oximetry (%) 100 Oxygen Delivery Method Room Air Intake Visit Reasons: Self referral/ Kidney stones Reporting Lead Required: No Accompanied by: Self / Same As Patient Allergies shrimp [SHRIMP] Allergy (Intermediate, Verified 09/07/24 14:30) SWELLING shellfish derived Allergy (Unknown, Verified 09/07/24 14:30) Swelling Medication List - Last Reconciled 09/07/24 by Clive Montes MD finasteride 1 mg PO DAILY minoxidil 2% 1 mL topical BID PRN sildenafil 50 mg PO DAILY PRN HPI Comments Details: Tex is a pleasant 59-year-old man who has self-referred himself for evaluation of possible kidney stones. He says he has had frequent urinary infections. He was seen by Urology. CT urogram done few months ago was unremarkable. All the urine studies done in the last few months show significantly elevated specific gravity. Otherwise urine sediments were benign. At present he has no specific complaints like dysuria urgency increased frequency or hematuria. [facility] Medical History Frequency of micturition Genital herpes in men Hypercholesterolemia Fatty liver GERD (gastroesophageal reflux disease) Irritable bowel syndrome Vitamin D deficiency Lupus anticoagulant positive Migraine Surgical History History of fundoplication No pertinent past surgical history Family History Father Myocardial infarct Brother Myocardial infarct Pancreatic cancer Maternal Uncle Myocardial infarct Paternal Aunt Myocardial infarct Maternal Uncle Barretts esophagus Maternal Grandmother Brain cancer Social History Housing: Apartment Alcohol intake: current Alcohol intake frequency: holidays/special occasions only Alcohol type: hard liquor Comment: 2 x a week 4 shots one time Patient Tobacco Use Status: Never used Tobacco Years Smoked: tinture CBD e-Cigarette/Vaping Use: Never Used Second Hand Smoke Exposure: No service: No Current occupational status: disabled Cognitive needs: No Hearing needs: No Vision needs: Yes Review of Systems Const Denies fever(s) and Denies weight loss Card Denies chest pain Resp Denies cough and Denies hemoptysis GI Denies abdominal pain, Denies diarrhea and Denies nausea Musc Denies back pain Neuro Denies focal weakness Physical Exam Vital Signs: Last Vital Signs Pulse 81 09/07/24 14:27 BP 126/72 09/07/24 14:27 Pulse Ox 100 09/07/24 14:27 Oxygen Delivery Method Room Air 09/07/24 14:27 BMI result Body Mass Index 23.1 Comfortable Neck supple no JVD. Lungs entry equal no rales. Heart S1-S2 heard no gallop or rub. Abdomen soft nontender. Neuro alert awake oriented. No asterixis. Extremities no edema. Results Reviewed Nephrology Results: Hgb 15.0 g/dl (14.0-18.0) 02/06/24 WBC 6.3 X10*3/uL (4.8-10.8) 02/06/24 Plt Count 266 X10*3/uL (160-400) 02/06/24 Sodium 140 mmol/L (135-145) 02/06/24 Potassium 4.2 mmol/L (3.3-5.1) 02/06/24 Chloride 107 mmol/L (96-108) 02/06/24 Carbon Dioxide 27 mmol/L (22-29) 02/06/24 BUN 15 mg/dL (9-16) 04/20/24 Creatinine 0.88 mg/dL (0.5-1.4) 04/20/24 Calcium 9.5 mg/dL (8.4-10.2) 02/06/24 Urine Protein Trace mg/dL (Neg-Trace) 04/20/24 Assessment & Plan Assessment & Plan (1) Dysuria: Code(s): R30.0 - Dysuria Category: Medical Plan 59-year-old man with normal renal function. No documented evidence of kidney stones. He has dysuria. Urine specific gravity is rather elevated persistently. This is most likely due to inadequate fluid intake. I will check a 24 urine collection. In the meantime encouraged him to stand low-sodium diet Increase p.o. fluid intake to maintain a urine output of at least 2 L. Further workup we are based on the outcome of the above investigations I have reassured him Orders: Orders Calcium, 24 Hr Ur 12/23/24 R30.0 - Dysuria Citric Acid 24hr Urine 09/07/24 R30.0 - Dysuria Sodium, 24Hr Urine Group 09/07/24 R30.0 - Dysuria Creatinine, 24 Hr Group 09/07/24 R30.0 - Dysuria Oxalate, 24 Hr 09/07/24 R30.0 - Dysuria Uric Acid, 24Hr Urine Group 09/07/24 R30.0 - Dysuria Coding Level of Care Code New Pt Level 4 (62554) Diagnoses Dysuria R30.0
== END 2024-09-07 14:51 | disposition home or self-care (01) ==
PROVIDERS: PCP Internal Medicine; Visit Provider Internal Medicine Hypertension Specialist
DX: R30.0 Dysuria (principal)
CPT/HCPCS: 99204

== ENCOUNTER → 2024-09-07 14:26 | Outpatient (BNVA) | payer BC, SELFPAY | PROVIDERS: PCP Internal Medicine; Visit Provider Internal Medicine Hypertension Specialist ==

== ENCOUNTER 2025-02-11 15:39 | Outpatient (REF) | payer BC, SELFPAY ==
[2025-02-11 16:04] LABS: MANUAL DIFF FLAG NO
[2025-02-11 17:09] LABS: Basophils Percent Auto 0.6 % (0-2); Eosinophils Absolute Auto 0.1 X10*3/uL (0.0-0.4); Eosinophils Percent Auto 1.4 % (0-4); Hematocrit 44.1 % (42.0-52.0); Hemoglobin 14.8 g/dl (14.0-18.0); Imm Gran Abs Auto 0.01 X10*3/uL (0.00-0.03); Imm Gran Pct Auto 0.2 % (0.0-0.4); Lymphocytes Absolute Auto 1.8 X10*3/uL (1.2-4.9); Lymphocytes Percent Auto 28.5 % (20-40); Mean Corpuscular HGB Conc 33.6 g/dl (31.0-36.0); Mean Corpuscular Hemoglobin 28.7 pg (27.0-33.0); Mean Corpuscular Volume 85.5 fL (80.0-98.0); Mean Platelet Volume 9.7 fL (9.4-12.4); Monocytes Absolute Auto 0.6 X10*3/uL (0.1-1.2); Monocytes Percent Auto 9.1 % (2-11); Neutrophils Absolute Auto 3.8 x10*3/uL (2.0-8.3); Neutrophils Percent Auto 60.2 % (45-73); Platelet Count 245 X10*3/uL (160-400); Red Blood Count 5.16 X10*6/uL (4.60-5.80); Red Cell Distribution Width 12.4 % (11.0-16.0); White Blood Count 6.4 X10*3/uL (4.8-10.8)
[2025-02-11 17:30] LABS: Estimated Average Glucose 108 mg/dL; Hemoglobin A1C 133.3542 umol/L; Hemoglobin A1c % 5.4 % (<6.0)
[2025-02-11 17:40] LABS: Alanine Aminotransferase 28 U/L (0-40); Albumin Level 4.1 g/dL (3.5-5.0); Alkaline Phosphatase 79 U/L (39-117); Anion Gap 10 (12-20); Aspartate Amino Transferase 24 U/L (5-37); Bilirubin Total 0.6 mg/dL (0.0-1.0); Blood Urea Nitrogen 9 mg/dL (9-16); Calcium 9.4 mg/dL (8.4-10.2); Carbon Dioxide 29 mmol/L (22-29); Chloride 107 mmol/L (96-108); Cholesterol 246 mg/dL (<200); Estimated Glomerular Filt Rate > 60; Glucose Random 88 mg/dL (60-115); HDL Cholesterol 40 mg/dL (>40); LDL Cholesterol Calculated 149 mg/dL (<100); Potassium 4.2 mmol/L (3.3-5.1); Sodium 142 mmol/L (135-145); Total Protein 7.1 g/dL (6.5-8.0); Triglycerides 286 mg/dL (<150)
[2025-02-11 17:54] LABS: Free T4 (Free Thyroxine) 0.88 ng/dL (0.71-1.85); Thyroid Stimulating Hormone 1.41 uIU/mL (0.32-4.0)
[2025-02-11 18:05] LABS: Folate 11.6 ng/mL (> or = 4.0); Vitamin B12 489 pg/mL (200-900)
== END 2025-02-11 15:40 | disposition home or self-care (01) ==
LOC: HO.LAB 15:39
PROVIDERS: PCP Internal Medicine; Visit Provider Internal Medicine
DX: Z00.00 Encounter for general adult medical examination without abnormal findings (principal); Z23 Encounter for immunization; E78.2 Mixed hyperlipidemia; N40.0 Benign prostatic hyperplasia without lower urinary tract symptoms; N52.9 Male erectile dysfunction, unspecified; K59.00 Constipation, unspecified; K21.9 Gastro-esophageal reflux disease without esophagitis; F41.1 Generalized anxiety disorder; L65.9 Nonscarring hair loss, unspecified; Z79.899 Other long term (current) drug therapy; Z12.5 Encounter for screening for malignant neoplasm of prostate
CPT/HCPCS: 36415; 80053; 80061; 82607; 82746; 83036; 84153; 84439; 84443; 85025; 90471; 90715; 96127

== ENCOUNTER 2025-02-11 16:09 | Outpatient (AMB) | payer BC, SELFPAY ==
--- NOTE | 2025-02-11 16:28 | MHC.PC.OV ---
Vital Signs 02/11/25 16:29 Height 5 ft 11 in Weight 163 lb 6 oz BMI 22.8 BP 126/78 Blood Pressure Location Lt brachial Position Sitting Pulse 74 Pulse Source Pulse Oximeter Pulse Oximetry (%) 98 Oxygen Delivery Method Room Air Intake Visit Reasons: Annual Physical Unit Secy Required: No Accompanied by: Self / Same As Patient Allergies shrimp [SHRIMP] Allergy (Intermediate, Verified 02/11/25 16:55) SWELLING shellfish derived Allergy (Unknown, Verified 02/11/25 16:55) Swelling Medication List - Last Reconciled 02/11/25 by LAMAR Cox finasteride 1 mg PO DAILY minoxidil 2% 1 mL topical BID PRN sildenafil 50 mg PO DAILY PRN Tobacco use date assessed: 02/11/25 Dental Screening Dental Screen Date: 02/11/25 Did you have a dental visit in the last 12 months?: No Did you have a dental problem in the last 6 months where you did not have access to dental care?: No Was dental information given to patient?: No HPI Annual Physical HPI Details Dentist: no, about a year and half ago for cleaning Eye: week ago, which was normal Snellen: Right: Left: Corrected vision:yes, changes his glasses STI screening: Colonoscopy: reports that he had one about 5 or 6 years ago Pap Smer:n/a PHQ-9: Flu:decline COVID: x2 Tdap:due Diet:regular Exercise:jogs twice a week Reports he is getting left leg pain only happens at night when lying down This is happening every night [facility] Medical History Frequency of micturition Genital herpes in men Hypercholesterolemia Fatty liver GERD (gastroesophageal reflux disease) Irritable bowel syndrome Vitamin D deficiency Lupus anticoagulant positive Migraine Surgical History History of fundoplication No pertinent past surgical history Family History Father Myocardial infarct Brother Myocardial infarct Pancreatic cancer Maternal Uncle Myocardial infarct Paternal Aunt Myocardial infarct Maternal Uncle Barretts esophagus Maternal Grandmother Brain cancer Social History Housing: Apartment Alcohol intake: current Alcohol intake frequency: holidays/special occasions only Alcohol type: hard liquor Comment: 2 x a week 4 shots one time Patient Tobacco Use Status: Never used Tobacco Years Smoked: tinture CBD e-Cigarette/Vaping Use: Never Used Second Hand Smoke Exposure: No service: No Current occupational status: disabled Cognitive needs: No Hearing needs: No Vision needs: Yes Questionnaire PHQ-9 Over the last 2 weeks, how often have you been bothered by any of the following problems? 1. Little interest or pleasure in doing things: not at all 2. Feeling down, depressed, or hopeless: not at all 3. Trouble falling or staying asleep, or sleeping too much: several days 4. Feeling tired or having little energy: several days 5. Poor appetite or overeating: several days 6. Feeling bad about yourself - or that you are a failure or have let yourself or your family down: several days 7. Trouble concentrating on things, such as reading the newspaper or watching television: several days 8. Moving or speaking so slowly that other people could have noticed. Or the opposite - being so fidgety or restless that you have been moving around a lot more than usual: several days 9. Thoughts that you would be better off or of hurting yourself in some way: not at all Total score: 6 Source: Developed by Drs. Artemio Jarrett, Gini Gutierrez, Bang Vazquez and colleagues, with an educational vinay from [employer]. Thrive Questionnaire Date Thrive assessed: 02/11/25 I am a: Patient What is your living situation today?: I have a steady place to live Within the past 12 months, did the food you bought not last and you didn't have the money to get more?: Sometimes True Within the past 12 months, did you worry whether your food would run out before you got money to buy more?: Sometimes True Do you have trouble paying for medicines?: No Do you have trouble getting transportation to medical appointments?: No Do you have trouble paying your heating and electricity bill?: Yes Do you have trouble taking care of your child, family member or friend?: No Do you have trouble with day-to-day activities such as bathing, preparing meals, shopping, managing finances, etc.?: No Are you currently unemployed and looking for a job?: No Are you interested in more education?: No Please select the resources that you would like help with: None Currently or been in a relationship where the following occur: I choose not to answer THRIVE Score: 3 AUDIT C Alcohol Use Questionnaire (AUDIT-C) 1. How often do you have a drink containing alcohol?: 2-4 times a month 2. How many drinks containing alcohol do you have on a typical day when you are drinking?: 3 or 4 3. How often do you have six or more drinks on one occasion?: Never Total Score: 3 PERFECTO-7 AMB Questionnaire PERFECTO-7 Date PERFECTO - 7 assessed: 02/11/25 Feeling nervous, anxious, or on edge: 1 = Several days Not being able to stop or control worryin = Several days Worrying too much about different things: 1 = Several days Trouble relaxin = Several days Being so restless that it is hard to sit still: 1 = Several days Becoming easily annoyed or irritable: 1 = Several days Feeling afraid as if something awful might happen: 1 = Several days Total PERFECTO-7 score (0-4 normal; 5-9 mild; 10-14 moderate; 15-21 severe): 7 Source: Developed by Drs. Artemio Jarrett, Gini Gutierrez, Bang Vazquez and colleagues, with an educational vinay from [employer]. Physical exam (Primary Care) Vital Signs: Last Vital Signs Pulse 74 02/11/25 16:29 BP 126/78 02/11/25 16:29 Pulse Ox 98 02/11/25 16:29 Oxygen Delivery Method Room Air 02/11/25 16:29 BMI result Body Mass Index 22.8 Tobacco/Smoking Status: Tobacco use Status Tobacco use date assessed 02/11/25 02/11/25 16:35 Patient Tobacco Use Status Never used Tobacco 02/11/25 16:35 Tobacco use type 08/08/24 09:10 e-Cigarette/Vaping Use Never Used 02/11/25 16:35 PHQ-9: PHQ-9 Score PHQ-9: Total score 6 02/11/25 16:58 Thrive Assessment: Date of Thrive Assessment Date Thrive assessed 02/11/25 02/11/25 16:35 Currently or been in a relationship where the following occur: I choose not to answer Immunizations Boostrix Tdap 2.5 Lf unit-8 mcg-5 Lf/0.5 mL intramuscular syringe Performing Provider: LAMAR Cox Performing Location: [facility] [place] [facility] Administered by: NIKKI Hough on 02/11/25 17:12 Dose Route Admin Location Dispensed Lot Number Expiration Date ND Fuller [employer]ush Man 0.5 mL IM Right Deltoid 0.5 mL [id number] 05/14/27 [id number] [employer] VIS Given Date VIS Provided VIS Publication Date 02/11/25 Single Vaccine 24 Eligibility Eligibility Date Funding Source Not [facility] Eligible 02/11/25 Private Coding Assessment & Plan Assessment & Plan Orders: Orders Complete Blood Count Auto Diff 11 Months E78.00 - Pure hypercholesterolemia, unspecified, F41.1 - Generalized anxiety disorder, K44.9 - Diaphragmatic hernia without obstruction or gangrene, M72.2 - Plantar fascial fibromatosis, N40.0 - Benign prostatic hyperplasia without lower urinary tract symptoms, N50.811 - Right testicular pain, R39.9 - Unspecified symptoms and signs involving the genitourinary system, Z00.00 - Encounter for general adult medical examination without abnormal findings Comprehensive Galien. Panel Fast 11 Months E78.00 - Pure hypercholesterolemia, unspecified, F41.1 - Generalized anxiety disorder, K44.9 - Diaphragmatic hernia without obstruction or gangrene, M72.2 - Plantar fascial fibromatosis, N40.0 - Benign prostatic hyperplasia without lower urinary tract symptoms, N50.811 - Right testicular pain, R39.9 - Unspecified symptoms and signs involving the genitourinary system, Z00.00 - Encounter for general adult medical examination without abnormal findings Lipid Panel 11 Months E78.00 - Pure hypercholesterolemia, unspecified, F41.1 - Generalized anxiety disorder, K44.9 - Diaphragmatic hernia without obstruction or gangrene, M72.2 - Plantar fascial fibromatosis, N40.0 - Benign prostatic hyperplasia without lower urinary tract symptoms, N50.811 - Right testicular pain, R39.9 - Unspecified symptoms and signs involving the genitourinary system, Z00.00 - Encounter for general adult medical examination without abnormal findings TSH reflex Free T4 11 Months E78.00 - Pure hypercholesterolemia, unspecified, F41.1 - Generalized anxiety disorder, K44.9 - Diaphragmatic hernia without obstruction or gangrene, M72.2 - Plantar fascial fibromatosis, N40.0 - Benign prostatic hyperplasia without lower urinary tract symptoms, N50.811 - Right testicular pain, R39.9 - Unspecified symptoms and signs involving the genitourinary system, Z00.00 - Encounter for general adult medical examination without abnormal findings Vitamin D 25-OH Total 11 Months E78.00 - Pure hypercholesterolemia, unspecified, F41.1 - Generalized anxiety disorder, K44.9 - Diaphragmatic hernia without obstruction or gangrene, M72.2 - Plantar fascial fibromatosis, N40.0 - Benign prostatic hyperplasia without lower urinary tract symptoms, N50.811 - Right testicular pain, R39.9 - Unspecified symptoms and signs involving the genitourinary system, Z00.00 - Encounter for general adult medical examination without abnormal findings Glucose Fasting 11 Months E78.00 - Pure hypercholesterolemia, unspecified, F41.1 - Generalized anxiety disorder, K44.9 - Diaphragmatic hernia without obstruction or gangrene, M72.2 - Plantar fascial fibromatosis, N40.0 - Benign prostatic hyperplasia without lower urinary tract symptoms, N50.811 - Right testicular pain, R39.9 - Unspecified symptoms and signs involving the genitourinary system, Z00.00 - Encounter for general adult medical examination without abnormal findings TDaP Immunization Today Z23 - Encounter for immunization UA CC w/rflx Micro + Cult 11 Months E78.00 - Pure hypercholesterolemia, unspecified, F41.1 - Generalized anxiety disorder, K44.9 - Diaphragmatic hernia without obstruction or gangrene, M72.2 - Plantar fascial fibromatosis, N40.0 - Benign prostatic hyperplasia without lower urinary tract symptoms, N50.811 - Right testicular pain, R39.9 - Unspecified symptoms and signs involving the genitourinary system, Z00.00 - Encounter for general adult medical examination without abnormal findings
[2025-02-11 16:29] VITALS: BP 126/78; PULSE 74; O2SAT 98; BMI 22.8
== END 2025-02-11 17:28 | disposition home or self-care (01) ==
LOC: HO.HMCH 16:10
PROVIDERS: PCP Internal Medicine
DX: Z23 Encounter for immunization (principal)

== ENCOUNTER 2025-08-17 16:07 | Outpatient (AMB) | payer BC, SELFPAY ==
--- NOTE | 2025-08-17 16:11 | MHC.OFFVIS ---
Intake Visit Reasons: discuss medication changes Intake Note: Patient is present for DISCUSS MEDICATION CHANGES Urology Medication:SILDENAFIL Antibiotic Allergy:NONE Blood Thinner:NONE Marketing Services Coordinator Required: No Allergies shrimp (SHRIMP) Allergy (Intermediate, Verified 08/17/25 20:59) SWELLING shellfish derived Allergy (Unknown, Verified 08/17/25 20:59) Swelling Medication List - Last Reconciled 08/17/25 by MICHAEL Wakefield- dutasteride 0.5 mg PO DAILY 90 days minoxidil 2% 1 mL topical BID PRN sildenafil 50 mg PO DAILY PRN simvastatin 5 mg PO BEDTIME HPI Comments Details: Tex is a 60-year-old male patient of Dr. Martin he has a past medical history of genital herpes, hypercholesteremia, fatty liver, GERD, irritable bowel syndrome, vitamin-D deficiency, and migraines. He is being followed up on today via video telehealth for his lower urinary tract symptoms. In discussion with the patient today he reports recently following up with his PCP at which time he was started on dutasteride and finasteride was discontinued however recommendations were made by his PCP to follow-up with Urology as he does have established care. He reports he was due to follow-up previously however never followed up in acknowledges the importance in doing so. He discusses at length how lower urinary tract symptoms he had been experiencing have significantly subsided. He currently denies any bothersome urinary issues or concerns. He is requesting refill on his PRN sildenafil. We did discussed potential causes of lower urinary tract symptoms he had been experiencing as well as further treatment options and risks and benefits of these treatment options. Previous workup has included a CT urogram 05/09 that noted no evidence of renal stones, solid masses, or lesions noted. No ureteric obstruction. No ureteral bladder stone, masses, lesions or distal ureteric stones are seen. No pelvic masses, lesions or lymphadenopathy noted. We discussed further workup to include in office cystoscopy given patient with a history of gross hematuria and lower urinary tract symptoms however he feels symptoms have since subsided and will continue with surveillance monitoring at this time. He currently denies any bothersome urinary issues or concerns. We discussed at length potential causes for lower urinary tract symptoms patient is experiencing. Previous workup has also included a bladder ultrasound 02/06 noting diffuse bladder wall thickening. Bladder jets are demonstrated. Pre void bladder volume is approximately 250 mL. Postvoid bladder volume is approximately 30 mL. The prostate measures approximately 55 mL. In review of patient's chart it appears PSAs are as follows: 12/04 0.9, 03/07 0.9, 03/08 0.9, 02/06 1.6, 02/07 0.8, 08/10 0.5 He otherwise denies urinary urgency, urinary frequency, nocturia, urinary incontinence, changes to urinary stream, flank pain, fever, and or chills. [facility] Medical History Frequency of micturition Genital herpes in men Hypercholesterolemia Fatty liver GERD (gastroesophageal reflux disease) Irritable bowel syndrome Vitamin D deficiency Lupus anticoagulant positive Migraine Surgical History History of fundoplication No pertinent past surgical history Family History Father Myocardial infarct Brother Myocardial infarct Pancreatic cancer Maternal Uncle Myocardial infarct Paternal Aunt Myocardial infarct Maternal Uncle Barretts esophagus Maternal Grandmother Brain cancer Social History Housing: Apartment Alcohol intake: current Alcohol intake frequency: holidays/special occasions only Alcohol type: hard liquor Comment: 2 x a week 4 shots one time Patient Tobacco Use Status: Never used Tobacco Years Smoked: tinture CBD e-Cigarette/Vaping Use: Never Used Second Hand Smoke Exposure: No service: No Current occupational status: disabled Cognitive needs: No Hearing needs: No Vision needs: Yes Review of Systems Const All systems reviewed & are unremarkable except as noted in HPI and below Physical Exam Const General: cooperative, healthy appearing, comfortable, no acute distress, well developed, alert and awake Orientation/consciousness: patient oriented x3 Resp Effort & Inspection: normal respiratory effort and able to speak in complete sentences Neuro General: patient oriented x3 Psych Appearance: well kempt Mental Status: mental status grossly normal Speech and movement: Clear speech present Affect: normal affect Attitude: cooperative Thought content: Normal thought content present Insight: Fair insight present (Psych) Judgement: Fair judgement present (Psych) Telehealth Telehealth Telehealth Platform: Telephone Location of provider rendering services: practice address Location of patient: address on file Patient Identification confirmed using: Name, : Yes Telehealth method: video Patient verbally consented to treatment: Yes Patient verbally consented to billing insurance company: Yes Patient informed of any privacy concerns related to visit: Yes Minutes spent on Phone/Video with Pt.: 25 Assessment & Plan Assessment & Plan (1) BPH (benign prostatic hyperplasia): Code(s): N40.0 - Benign prostatic hyperplasia without lower urinary tract symptoms Category: Medical Qualifiers: Lower urinary tract symptom presence: symptoms absent Qualified Code(s): N40.0 - Benign prostatic hyperplasia without lower urinary tract symptoms (2) Frequency of micturition: Code(s): R35.0 - Frequency of micturition Category: Medical (3) Lower urinary tract symptoms: Code(s): R39.9 - Unspecified symptoms and signs involving the genitourinary system Category: Medical (4) Erectile dysfunction: Code(s): N52.9 - Male erectile dysfunction, unspecified Category: Medical Qualifiers: Erectile dysfunction type: unspecified Qualified Code(s): N52.9 - Male erectile dysfunction, unspecified Plan Most recent PSA results reviewed with the patient today; as noted above. Continue dutasteride and PRN sildenafil; refill provided. We did discussed potential causes of lower urinary tract symptoms as well as further treatment options and risks and benefits of these treatment options. He currently denies any bothersome urinary issues or concerns. He reports be happy with current voiding parameters. We did discussed in office cystoscopy at length. All questions were answered. We also discussed importance of following up as planned. Will continue with surveillance monitoring at this time. Follow-up in 6 months with [facility]; or sooner with any issues, concerns, and or questions. Orders: Orders Urine Cytology Today N40.0 - Benign prostatic hyperplasia without lower urinary tract symptoms Medications: Changed From dutasteride 0.5 mg PO DAILY 90 caps 0RF N40.0 - Benign prostatic hyperplasia without lower urinary tract symptoms To dutasteride 0.5 mg PO DAILY 90 caps 4RF 90 days N40.0 - Benign prostatic hyperplasia without lower urinary tract symptoms Refilled sildenafil administer 30 minutes to 4 hours before activity 50 mg PO DAILY PRN 90 tabs 0RF sexual activity N52.9 - Male erectile dysfunction, unspecified Patient Instructions: The patient had an opportunity to ask questions regarding the treatment plan. All questions were answered. Physical exam, labs, and imaging were discussed and reviewed in detail. As well as risks, benefits, and discussion of treatment choices. No major barriers to understanding were identified. The patient expressed understanding and agreement with the above treatment plan. The patient was made aware they should contact our office by phone for worsening of their current condition, the appearance of new symptoms, or with any questions or concerns. Compliance is encouraged with any medications and follow up testing that is ordered. It is a privilege to be allowed the opportunity to participate in? your urological care.? Again, if you have any questions or concerns If you have any questions or concerns please do not hesitate to contact me. The office is [phone]. This note is constructed using voice recognition software. While every effort has been made to ensure accuracy medical dermatologist errors may have been included. Yours sincerely, CLIFF Wakefield Coding Level of Care Code Tele Est Pt Level 4 (25620) Diagnoses Benign prostatic hyperplasia without lower urinary tract symptoms N40.0 Lower urinary tract symptom presence: symptoms absent Frequency of micturition R35.0 Lower urinary tract symptoms R39.9 Erectile dysfunction, unspecified erectile dysfunction type N52.9 Erectile dysfunction type: unspecified
== END 2025-08-17 16:55 | disposition home or self-care (01) ==
LOC: HO.HUSH 16:07
PROVIDERS: PCP Internal Medicine; Visit Provider Nurse Practitioner Family
DX: N40.0 Benign prostatic hyperplasia without lower urinary tract symptoms (principal); R35.0 Frequency of micturition; R39.9 Unspecified symptoms and signs involving the genitourinary system; N52.9 Male erectile dysfunction, unspecified
CPT/HCPCS: 99214